=== PATIENT | female | born 2000 | race Caucasian/White ===

== ENCOUNTER 2024-06-29 13:31 | Outpatient (AMB) | payer MEDICAID, SELFPAY ==
[2024-06-29 13:40] VITALS: BP 135/91; PULSE 92; RESP 18; TEMP 36.5; O2SAT 97; BMI 27.7
--- NOTE | 2024-06-29 13:40 | OBCLNT_ITS ---
Vital Signs 06/29/24 13:40 Height 1.61 m Height Method Stated Weight 72.121 kg Weight Measurement Method Standing Scale BMI 27.7 BP 135/91 H Blood Pressure Source Automatic Cuff Blood Pressure Location Right Upper Arm Position Sitting Respiration 18 Pulse 92 Pulse Source Monitor Temp 97.7 F Temp Source Oral Pulse Oximetry (%) 97 Oxygen Delivery Method Room Air Allergies/Home Meds Allergies & Medications Allergies No Known Allergies Allergy (Verified 06/29/24 13:41) Medication Reconciliation ondansetron 8 mg disintegrating tablet 8 mg PO QDAY PRN nausea and vomiting 5 days #10 tabs 06/29/24 [Rx] promethazine 12.5 mg rectal suppository 12.5 mg [place] Q6H PRN nausea and vomiting #12 ea 06/29/24 [Rx] Intake Visit Data Collection New Patient or Established: New Patient (never been to [facility]) Reason for Visit:: INITIAL CARE Seen by Clinical Staff ONLY (RN/MA): No Cargo Agent Required: No Do You Feel Safe at Home: Yes Authorities Contacted: N/A PCP or OBGYN visit in last 3 months: Yes Hx Now: Yes Are you currently on any form of Control: No Last menstrual period: 04/04/24 Pain Present Currently: Yes Pain Location: Abdomen Pain Scale Used: Rivas-Bojorquez/Numerical Pain scale:: 6 Smoking Status Smoking Status: Never smoker Questionnaires Covid-19 Vaccine Questionnaire Has patient been vacinated for Covid-19 Have you been vacinated for Covid-19: No PHQ-9 PHQ-2 Over the last 2 weeks, how often have you been bothered by any of the following problems? 1. Little interest or pleasure in doing things: not at all 2. Feeling down, depressed, or hopeless: not at all Total score: 0 PHQ-9 3. Trouble falling or staying asleep, or sleeping too much: Not at all 4. Feeling tired or having little energy: Not at all 5. Poor appetite or overeating: Not at all 6. Feeling bad about yourself - or that you are a failure or have let yourself or your family down: Not at all 7. Trouble concentrating on things, such as reading the newspaper or watching television: Not at all 8. Moving or speaking so slowly that other people could have noticed? - Or the opposite - being so fidgety or restless that you have been moving around a lot more than usual: not at all 9. Thoughts that you would be better off or of hurting yourself in some way: Not at all Total score: 0 Source: Developed by Drs. Sebastián Gonzáles, Layla Arias, Oh Tomas and colleagues, with an educational sigifredo from [employer]. Depression screen completed yes Social History Living Situation History Lives With: Family Housing: House Tobacco History Smoking Status: Never smoker Second Hand Smoke Exposure: No Alcohol History Alcohol Intake: Never Domestic Abuse History Do You Feel Safe at Home: Yes History of Present Illness HPI Narrative 24-year-old 1 here for new OB appointment. Plan . Last. Was April 04, 2024. Gives EDC January 08, 2025. Patient notes complaints of hyperemesis so far this . Patient reports that she has been to the ED ED 4 times already for nausea and vomiting. Reports she is unable to keep any food down or liquids. She has not been able to eat for the last 3 days. Denies any bleeding or cramping. Patient reports she has a history of marijuana use but is stopped with the . She had her gallstones about 4 years ago. Previous history of headaches but no visual changes or aura. And anemia. No SAB complaints at this time. Patient reports that at menarche her periods were regular but now they have become more regular. And she reports that her and her partner were trying to get . Happy about the but patient reported that she is having a hard time with the nausea and vomiting is uncontrollable to her and she was or would consider terminating . OB Initial Visit OB Flowsheet OB Flowsheet Initial Weight: Not Recorded Date -?-?-?-?-?-?-?-?-?-?-?-?- EGA Weight Edema CTX Effacement BP Fundal ht Pres Dilation Effacement Station Visit Note Alb Glu FHR Mov 06/29/24 -?-?-?-?-?-?-?-?-?-?-?-?- 12w 2d 72.121 kg absent absent 135/91 13 unknown 24-year-old 1 for OB appointment. Last period was April 04, 2024. And this gives due date January 08, 2025. Denies any SAB complaints thus far. Patient reports hyperemesis. She is nauseous all day and has been vomiting nonstop. Unable to eat even small amounts of food. Unable to drink liquids. She has been to the ER now 4 times. Reports that she was treated with an IV and then sent home not on any antiemetics. I spent time with patient today discussing comfort measures for hyperemesis. Such as dry diet. I recommended sea bands to the patient to try. Gave a prescription for Zofran 8 mg sublingual's I gave 30 of those with refills and then I also gave him Phenergan 12.5 suppositories that is every 6. If she is unable to tolerate the p.o. Zofran. Patient is states that she can tolerate gummy so she is taking those. OB panel with NIPT and carrier screens and drug screen today. Scheduled maternal- medicine sono for evaluation of anatomy. Early anatomy scan. Discussed SAB precautions and patient will return in 2 weeks for follow-up 156 absent Menstrual History Menstrual reliability: definite Flow: normal Menstrual regularity: irregular Monthly: Yes Age at menarche: 11 On control pills at conception: No Associated symptoms (LMP): Reports nausea, vomiting, fatigue, breast tenderness and bloating OB History : 1 Infection History & Risk Evaluation History of STDs: none Genetic Screening & History Genetic Screening/Teratology Counseling - Includes patient, baby's father, or anyone in either family with: 1. Patient's age 35 years or older as of estimated date of delivery: No 2. Thalassemia (Lithuanian, South African, Mediterranean, or Background); MCV less than 80: No 3. Neural Tube Defect (Meningomyelocele, Spina Bifida, or Anencephaly): No 4. Congenital Heart Defect: No 5. Down Syndrome: No 6. Steven-Sachs (Ashkenazi Orthodoxy, Cajun, Yoruba [place]): No 7. Carmen Disease (Ashkenazi Orthodoxy): No 8. Familial Dysautonomia (Ashkenazi Orthodoxy): No 9. Sickle Cell Disease or Trait (): No 10. Hemophilia or other blood disorders: No 11. Muscular Dystrophy: No 12. Cystic Fibrosis: No 13. Armando's Chorea: No 14. Mental Retardation/Autism: No 15. Other inherited genetic or chromosomal disorder: No 16. Maternal Metabolic Disorder (EG,TYPE 1 Diabetes, PKU): No 17. Patient or baby's father had a child with defects not listed above: No 18. Recurrent loss or a stillbirth: No 19. Medications (including supplements, vitamins, herbs or otc drugs)/illicit/recreational drugs/alcohol since last menstrual period: No 20. Any other: No Infection History 1. Live with someone with TB or exposed to TB: No 2. Rash or viral illness since last menstrual period: No 3. Hepatitis B,C: No Other (see comments) Source: [employer] Review of Systems Review of Systems Systems Reviewed: All systems reviewed, normal except as documented Constitutional Constitutional: Reports fatigue Gastrointestinal Gastrointestinal: Reports bloating, Reports nausea and Reports vomiting Endocrine Endocrine: Reports fatigue Exam General Limitations: no limitations General Appearance: alert, in no apparent distress, comfortable, cooperative, healthy appearing, well developed and well groomed Head Head exam: atraumatic, normocephalic and normal inspection Resp Respiratory exam: Present normal lung sounds bilaterally Card Cardiovascular exam: Present regular rate, normal rhythm and normal heart sounds Abdominal Abdominal exam: Present soft and normal bowel sounds Psych Psychiatric exam: Present normal affect and normal mood Office Procedures OB Clinic LOC & Office Proc's Nursing/Assessment Patient Status: Initial/New Patient OB Clinic Nursing Assessment: Medication Reconciliation, Update PMH in EMR and Vital Signs OB Clinic Coordination of Care: Complex Care and Chronic Disease 1-5, Consent,records obtained, informed consent, Education Simp Pt/Fam, Results/Orders obtained and Staff clarify orders Special Needs: Heart tones New Patient Charge New Patient Point Assignment: 1119 New Patient Point Charge: CHEMICAL PROCESSING TECHNICIAN Level 4 ([id number]) Assessment & Plan Diagnosis / Problem List (1) Encounter for supervision of normal first , first trimester: Status: Acute Plan Schedule anatomy scan with maternal- medicine. Discussed comfort measures for hyperemesis and severe nausea and vomiting. I gave her prescription for Zofran 8 mg sublingual to use once a day for nausea and vomiting and also Phenergan suppository 12.5 Q6 as needed for nausea. Recommended dry diet. Discussed SAB precautions. OB panel today with NIPT and carrier screening. Return in 2 weeks follow-up Additional Plan Follow Up: 2 Weeks (obc)
== END 2024-06-29 14:38 | disposition home or self-care (01) ==
LOC: HODSOBC 13:31
PROVIDERS: Supervising Provider Advanced Practice Midwife; Visit Provider Advanced Practice Midwife
DX: O09.891 Supervision of other high risk pregnancies, first trimester (principal); Z3A.12 12 weeks gestation of pregnancy; O21.0 Mild hyperemesis gravidarum
CPT/HCPCS: 99204; G0463

== ENCOUNTER 2024-06-29 15:53 | Emergency (ER) | payer MEDICAID, SELFPAY ==
[2024-06-29 16:41] VITALS: BP 119/77; PULSE 89; RESP 20; TEMP 36.9; O2SAT 100
--- NOTE | 2024-06-29 16:52 | EDRME_ITS ---
Rapid Medical Screening Exam E Arrival date/time: 06/29/24 15:53 24-year-old female with no known medical history presents to the emergency room with a chief complaint of nausea vomiting x 1 week. Patient is currently 12 weeks . Patient states she has seen her PERSONAL CARE SERVICE PROVIDER and has been prescribed Zofran but it is not working. I have greeted and performed a focused initial assessment of this patient. A comprehensive ED assessment and evaluation of the patient, analysis of all test results, and completion of the medical decision making process will be conducted by additional ED providers. Chief Complaint: Nausea/Vomiting/Diarrhea Time Seen by Provider: 06/29/24 16:38 Vital signs: Vital Signs Temperature 98.4 F 06/29/24 16:41 Pulse Rate 89 06/29/24 16:41 Respiratory Rate 20 06/29/24 16:41 Blood Pressure 119/77 06/29/24 16:41 Pulse Oximetry (%) 100 06/29/24 16:41 Oxygen Delivery Method Room Air 06/29/24 16:41 Vital signs reviewed by provider: Yes
--- NOTE | 2024-06-29 16:59 | PC.NURSE ---
@165 - PT CALLED FROM ED [facility]; NO ANSWER. @174- PT CALLED FROM [facility] AGAIN; NO ANSWER. @1811- PT CALLED FROM ED [facility] FOR LAST CALL; NO ANSWER. PT ELOPED.
--- NOTE | 2024-06-29 16:59 | PC.NURSE ---
no answer x 1 at 1656. checked outside and lobby.
--- NOTE | 2024-06-29 17:41 | PC.NURSE ---
no answer x 2 at 1740. checked outside and lobby
== END 2024-06-29 18:14 | disposition left against medical advice (07) ==
PROVIDERS: Emergency Provider Emergency Medicine
DX: O21.9 Vomiting of pregnancy, unspecified (principal); Z3A.12 12 weeks gestation of pregnancy; Z53.29 Procedure and treatment not carried out because of patient's decision for other reasons
CPT/HCPCS: 80053; 85025; 99281

== ENCOUNTER 2024-07-13 11:49 | Outpatient (AMB) | payer MEDICAID, SELFPAY ==
[2024-07-13 11:54] VITALS: BP 131/78; PULSE 102; RESP 18; TEMP 36; O2SAT 98; BMI 29.1
--- NOTE | 2024-07-13 11:54 | AMB.OBVISIT ---
Vital Signs 07/13/24 11:54 Height 1.61 m Height Method Stated Weight 75.466 kg Weight Measurement Method Standing Scale BMI 29.1 BP 131/78 H Blood Pressure Source Automatic Cuff Blood Pressure Location Left Upper Arm Position Sitting Respiration 18 Pulse 102 H Pulse Source Monitor Temp 96.8 F Temp Source Oral Pulse Oximetry (%) 98 Oxygen Delivery Method Room Air Allergies/Home Meds Allergies & Medications Allergies latex Allergy (Verified 07/13/24 11:55) Medication Reconciliation ondansetron 8 mg disintegrating tablet 8 mg PO QDAY PRN nausea and vomiting 5 days #10 tabs 06/29/24 [Rx Confirmed 07/13/24] promethazine 12.5 mg rectal suppository 12.5 mg [place] Q6H PRN nausea and vomiting #12 ea 06/29/24 [Rx Confirmed 07/13/24] Intake Visit Data Collection New Patient or Established: Established Patient (seen at [facility] within 3 years) Reason for Visit:: C Seen by Clinical Staff ONLY (RN/MA): No Bioinformatics Research Technician Required: No Do You Feel Safe at Home: Yes Authorities Contacted: N/A PCP or OBGYN visit in last 3 months: Yes Date of Last PCP or OBGYN visit: 06/29/24 Hx Now: Yes Are you currently on any form of Control: No Pain Present Currently: No Pain Scale Used: Rivas-Bojorquez/Numerical Pain scale:: 0 Smoking Status Smoking Status: Never smoker Questionnaires Covid-19 Vaccine Questionnaire Has patient been vacinated for Covid-19 Have you been vacinated for Covid-19: Yes PHQ-9 PHQ-2 Over the last 2 weeks, how often have you been bothered by any of the following problems? 1. Little interest or pleasure in doing things: not at all 2. Feeling down, depressed, or hopeless: not at all Total score: 0 PHQ-9 3. Trouble falling or staying asleep, or sleeping too much: Not at all 4. Feeling tired or having little energy: Not at all 5. Poor appetite or overeating: Not at all 6. Feeling bad about yourself - or that you are a failure or have let yourself or your family down: Not at all 7. Trouble concentrating on things, such as reading the newspaper or watching television: Not at all 8. Moving or speaking so slowly that other people could have noticed? - Or the opposite - being so fidgety or restless that you have been moving around a lot more than usual: not at all 9. Thoughts that you would be better off or of hurting yourself in some way: Not at all Total score: 0 If you checked off any problems, how difficult have these problems made it for you to do your work, take care of things at home, or get along with other people?: not difficult at all Source: Developed by Drs. Sebastián Gonzáles, Layla Arias, Oh Tomas and colleagues, with an educational sigifredo from [employer]. Depression screen completed yes Social History Living Situation History Lives With: Family Housing: House Tobacco History Smoking Status: Never smoker Second Hand Smoke Exposure: No Alcohol History Alcohol Intake: Never Domestic Abuse History Do You Feel Safe at Home: Yes Care OB Visit Log OB Flowsheet Initial Weight: Not Recorded Date <del>?</del> EGA Weight BP Alb Glu CTX Pres Fundal ht FHR Mov Dilation Station Effacement Hx Notes Visit Note 06/29/24 <del>?</del> 12w 2d 72.121 kg 135/91 absent unknown 13 156 absent 24-year-old 1 for OB appointment. Last period was April 04, 2024. And this gives due date January 08, 2025. Denies any SAB complaints thus far. Patient reports hyperemesis. She is nauseous all day and has been vomiting nonstop. Unable to eat even small amounts of food. Unable to drink liquids. She has been to the ER now 4 times. Reports that she was treated with an IV and then sent home not on any antiemetics. I spent time with patient today discussing comfort measures for hyperemesis. Such as dry diet. I recommended sea bands to the patient to try. Gave a prescription for Zofran 8 mg sublingual's I gave 30 of those with refills and then I also gave him Phenergan 12.5 suppositories that is every 6. If she is unable to tolerate the p.o. Zofran. Patient is states that she can tolerate gummy so she is taking those. OB panel with NIPT and carrier screens and drug screen today. Scheduled maternal- medicine sono for evaluation of anatomy. Early anatomy scan. Discussed SAB precautions and patient will return in 2 weeks for follow-up 07/13/24 <del>?</del> 14w 2d 75.466 kg 131/78 absent unknown 14 156 absent patient will get NIPT and ob panel today. reports nausea improving with zofran, MFM appointment pending. denies sab complaints, AFP NV advised to get labs. mfm appointment pending. continue zofran as needed for nausea, discuss dry diet. sab precaution, AFP NV JAMARCUS Calculator Estimated Delivery Date Method Current WG Current Estimate 01/09/25 LMP (Certain) 14w 2d Notes Visit Date: 06/29/24 Last Updated by: Krystal Mcgee CNM 24 yo . LMP 04/04/24. EDC 01/08/25. Hyperemesis Office Procedures OB Clinic LOC & Office Proc's Nursing/Assessment Patient Status: Established Patient OB Clinic Nursing Assessment: Medication Reconciliation, Update PMH in EMR and Vital Signs OB Clinic Coordination of Care: Consent,records obtained, informed consent, Education Simp Pt/Fam and Lab and Imaging orders Special Needs: Heart tones Established Patient Charge Established Patient Point Assignment: 95 Established Patient Point Charge: EP Level 3 (80-115) Assessment & Plan Diagnosis / Problem List (1) Encounter for supervision of other normal , second trimester: Status: Acute Plan AFP NV, MFM appointment pending, continue zofran as needed for nausea and comfort measure. sab precaution. get ob labs drawn. rtc 4 week obc Additional Plan Follow Up: 4 Weeks (obc)
== END 2024-07-13 12:39 | disposition home or self-care (01) ==
LOC: HODSOBC 11:49
PROVIDERS: Supervising Provider Advanced Practice Midwife; Visit Provider Advanced Practice Midwife
DX: Z34.02 Encounter for supervision of normal first pregnancy, second trimester (principal); Z3A.14 14 weeks gestation of pregnancy
CPT/HCPCS: 99213; G0463

== ENCOUNTER 2024-08-17 08:53 | Outpatient (AMB) | payer MEDICAID, SELFPAY ==
[2024-08-17 09:08] VITALS: BP 115/79; PULSE 104; RESP 17; TEMP 36.5; O2SAT 97; BMI 28.0
--- NOTE | 2024-08-17 09:08 | OBCLNT_ITS ---
Vital Signs 08/17/24 09:08 Height 1.61 m Height Method Stated Weight 72.802 kg Weight Measurement Method Standing Scale BMI 28.0 BP 115/79 Blood Pressure Source Automatic Cuff Blood Pressure Location Right Upper Arm Position Sitting Respiration 17 Pulse 104 H Pulse Source Monitor Temp 97.7 F Temp Source Temporal Artery Scan Pulse Oximetry (%) 97 Oxygen Delivery Method Room Air Allergies/Home Meds Allergies & Medications Allergies latex Allergy (Verified 08/17/24 09:08) Medication Reconciliation ondansetron 8 mg disintegrating tablet 8 mg PO QDAY PRN nausea and vomiting 5 days #10 tabs 06/29/24 [Rx Confirmed 07/13/24] Intake Visit Data Collection New Patient or Established: Established Patient (seen at [facility] within 3 years) Reason for Visit:: OBC Seen by Clinical Staff ONLY (RN/MA): No Museum Preparator Required: No Do You Feel Safe at Home: Yes Authorities Contacted: N/A PCP or OBGYN visit in last 3 months: Yes Date of Last PCP or OBGYN visit: 07/13/24 Hx Now: Yes Are you currently on any form of Control: No Pain Present Currently: No Pain Scale Used: Rivas-Bojorquez/Numerical Smoking Status Smoking Status: Never smoker Questionnaires Covid-19 Vaccine Questionnaire Has patient been vacinated for Covid-19 Have you been vacinated for Covid-19: No PHQ-9 PHQ-2 Over the last 2 weeks, how often have you been bothered by any of the following problems? 1. Little interest or pleasure in doing things: not at all 2. Feeling down, depressed, or hopeless: not at all Total score: 0 PHQ-9 3. Trouble falling or staying asleep, or sleeping too much: Not at all 4. Feeling tired or having little energy: Not at all 5. Poor appetite or overeating: Not at all 6. Feeling bad about yourself - or that you are a failure or have let yourself or your family down: Not at all 7. Trouble concentrating on things, such as reading the newspaper or watching television: Not at all 8. Moving or speaking so slowly that other people could have noticed? - Or the opposite - being so fidgety or restless that you have been moving around a lot more than usual: not at all 9. Thoughts that you would be better off or of hurting yourself in some way: Not at all Total score: 0 If you checked off any problems, how difficult have these problems made it for you to do your work, take care of things at home, or get along with other people?: not difficult at all Source: Developed by Drs. Sebastián Gonzáles, Layla Arias, Oh Tomas and colleagues, with an educational sigifredo from [employer]. Depression screen completed yes Social History Living Situation History Marital Status: Lives With: Family Housing: House Tobacco History Smoking Status: Never smoker Second Hand Smoke Exposure: No Alcohol History Alcohol Intake: Never Domestic Abuse History Do You Feel Safe at Home: Yes Care OB Visit Log OB Flowsheet Initial Weight: Not Recorded Date -?-?-?-?-?-?-?-?-?-?-?-?- EGA Weight BP Alb Glu CTX Pres Fundal ht FHR Mov Dilation Station Effacement Hx Notes Visit Note 06/29/24 -?-?-?-?-?-?-?-?-?-?-?-?- 12w 2d 72.121 kg 135/91 absent unknown 13 156 absent 24-year-old 1 for OB appointment. Last period was April 04, 2024. And this gives due date January 08, 2025. Denies any SAB complaints thus far. Patient reports hyperemesis. She is nauseous all day and has been vomiting nonstop. Unable to eat even small amounts of food. Unable to drink liquids. She has been to the ER now 4 times. Reports that she was treated with an IV and then sent home not on any antiemetics. I spent time with patient today discussing comfort measures for hyperemesis. Such as dry diet. I recommended sea bands to the patient to try. Gave a prescription for Zofran 8 mg sublingual's I gave 30 of those with refills and then I also gave him Phenergan 12.5 suppositories that is every 6. If she is unable to tolerate the p.o. Zofran. Patient is states that she can tolerate gummy so she is taking those. OB panel with NIPT and carrier screens and drug screen today. Scheduled maternal- medicine sono for evaluation of anatomy. Early anatomy scan. Discussed SAB precautions and patient will return in 2 weeks for follow-up 07/13/24 -?-?-?-?-?-?-?-?-?-?-?-?- 14w 2d 75.466 kg 131/78 absent unknown 14 156 absent patient will get NIPT and ob panel today. reports nausea improving with zofran, MFM appointment pending. denies sab complaints, AFP NV advised to get labs. mfm appointment pending. continue zofran as needed for nausea, discuss dry diet. sab precaution, AFP NV 08/17/24 -?-?-?-?-?-?-?-?-?-?-?-?- 19w 2d 72.802 kg 115/79 absent unknown 19 154 absent light FM, no sab complaints. patient not sched for work x 3 week AFP, comfort measure for increased saliva. sab precaution. patient will call [facility] for sono. rtc 4 week JAMARCUS Calculator Estimated Delivery Date Method Current WG Current Estimate 01/09/25 LMP (Certain) 19w 2d Notes Visit Date: 08/17/24 Last Updated by: Krystal Mcgee CNM 08/16: O+,abs-, rpr;;nr, rub:NI, hbsag-, hiv-, gc/ct-, NIPT/neg, CF/SMA- Visit Date: 06/29/24 Last Updated by: Krystal Mcgee CNM 24 yo . LMP 04/04/24. EDC 01/08/25. Hyperemesis Office Procedures OB Clinic LOC & Office Proc's Nursing/Assessment Patient Status: Established Patient OB Clinic Nursing Assessment: Medication Reconciliation OB Clinic Coordination of Care: Complex Care and Chronic Disease 1-5, Consent,records obtained, informed consent, Education Simp Pt/Fam and Staff clarify orders Special Needs: Heart tones Established Patient Charge Established Patient Point Assignment: 90 Established Patient Point Charge: EP Level 3 (80-115) Assessment & Plan Diagnosis / Problem List (1) Encounter for supervision of other normal , second trimester: Status: Acute Plan: AFP, comfort measure for increased saliva, r/s MFNM appointment, sab precaution. rtc 4 week. OBC Additional Plan Follow Up: 4 Weeks (OBC)
== END 2024-08-17 09:38 | disposition home or self-care (01) ==
LOC: HODSOBC 08:53
PROVIDERS: PCP Advanced Practice Midwife; Referring Provider Advanced Practice Midwife; Supervising Provider Advanced Practice Midwife; Visit Provider Advanced Practice Midwife
DX: Z34.02 Encounter for supervision of normal first pregnancy, second trimester (principal); Z3A.19 19 weeks gestation of pregnancy
CPT/HCPCS: 99213; G0463

== ENCOUNTER 2024-09-14 10:23 | Outpatient (AMB) | payer MEDICAID, SELFPAY ==
[2024-09-14 10:45] VITALS: BP 115/75; PULSE 86; RESP 17; TEMP 36.8; O2SAT 98; BMI 29.5
--- NOTE | 2024-09-14 10:45 | OBCLNT_ITS ---
Vital Signs 09/14/24 10:45 Height 1.61 m Height Method Stated Weight 76.657 kg Weight Measurement Method Standing Scale BMI 29.5 BP 115/75 Blood Pressure Source Automatic Cuff Blood Pressure Location Right Upper Arm Position Sitting Respiration 17 Pulse 86 Pulse Source Monitor Temp 98.2 F Temp Source Temporal Artery Scan Pulse Oximetry (%) 98 Oxygen Delivery Method Room Air Allergies/Home Meds Allergies & Medications Allergies latex Allergy (Verified 09/14/24 10:46) Medication Reconciliation ondansetron 8 mg disintegrating tablet 8 mg PO QDAY PRN nausea and vomiting 5 days #10 tabs 06/29/24 [Rx Confirmed 09/14/24] Intake Visit Data Collection New Patient or Established: Established Patient (seen at [facility] within 3 years) Reason for Visit:: OBC 23W2D Seen by Clinical Staff ONLY (RN/MA): No Architectural Designer Required: No Do You Feel Safe at Home: Yes Authorities Contacted: N/A PCP or OBGYN visit in last 3 months: Yes Date of Last PCP or OBGYN visit: 08/17/24 Hx Now: Yes Are you currently on any form of Control: No Pain Present Currently: No Pain Scale Used: Rivas-Bojorquez/Numerical Pain scale:: 0 Smoking Status Smoking Status: Never smoker Questionnaires Covid-19 Vaccine Questionnaire Has patient been vacinated for Covid-19 Have you been vacinated for Covid-19: No PHQ-9 PHQ-2 Over the last 2 weeks, how often have you been bothered by any of the following problems? 1. Little interest or pleasure in doing things: not at all 2. Feeling down, depressed, or hopeless: not at all Total score: 0 PHQ-9 3. Trouble falling or staying asleep, or sleeping too much: Not at all 4. Feeling tired or having little energy: Not at all 5. Poor appetite or overeating: Not at all 6. Feeling bad about yourself - or that you are a failure or have let yourself or your family down: Not at all 7. Trouble concentrating on things, such as reading the newspaper or watching television: Not at all 8. Moving or speaking so slowly that other people could have noticed? - Or the opposite - being so fidgety or restless that you have been moving around a lot more than usual: not at all 9. Thoughts that you would be better off or of hurting yourself in some way: Not at all Total score: 0 If you checked off any problems, how difficult have these problems made it for you to do your work, take care of things at home, or get along with other people?: not difficult at all Source: Developed by Drs. Sebastián Gonzáles, Layla Arias, Oh Tomas and colleagues, with an educational sigifredo from [employer]. Depression screen completed yes Social History Living Situation History Marital Status: Life Partner Lives With: Family Housing: House Tobacco History Smoking Status: Never smoker Second Hand Smoke Exposure: No Alcohol History Alcohol Intake: Never Domestic Abuse History Do You Feel Safe at Home: Yes Care OB Visit Log OB Flowsheet Initial Weight: Not Recorded Date -?-?-?-?-?-?-?-?-?-?-?-?- EGA Weight BP Alb Glu CTX Pres Fundal ht FHR Mov Dilation Station Effacement Hx Notes Visit Note 06/29/24 -?-?-?-?-?-?-?-?-?-?-?-?- 12w 2d 72.121 kg 135/91 absent unknown 13 156 absent 24-year-old 1 for OB appointment. Last period was April 04, 2024. And this gives due date January 08, 2025. Denies any SAB complaints thus far. Patient reports hyperemesis. She is nauseous all day and has been vomiting nonstop. Unable to eat even small amounts of food. Unable to drink liquids. She has been to the ER now 4 times. Reports that she was treated with an IV and then sent home not on any antiemetics. I spent time with patient today discussing comfort measures for hyperemesis. Such as dry diet. I recommended sea bands to the patient to try. Gave a prescription for Zofran 8 mg sublingual's I gave 30 of those with refills and then I also gave him Phenergan 12.5 suppositories that is every 6. If she is unable to tolerate the p.o. Zofran. Patient is states that she can tolerate gummy so she is taking those. OB panel with NIPT and carrier screens and drug screen today. Scheduled maternal- medicine sono for evaluation of anatomy. Early anatomy scan. Discussed SAB precautions and patient will return in 2 weeks for follow-up 07/13/24 -?-?-?-?-?-?-?-?-?-?-?-?- 14w 2d 75.466 kg 131/78 absent unknown 14 156 absent patient will get NIPT and ob panel today. reports nausea improving with zofran, MFM appointment pending. denies sab complaints, AFP NV advised to get labs. mfm appointment pending. continue zofran as needed for nausea, discuss dry diet. sab precaution, AFP NV 08/17/24 -?-?-?-?-?-?-?-?-?-?-?-?- 19w 2d 72.802 kg 115/79 absent unknown 19 154 absent light FM, no sab complaints. patient not sched for work x 3 week AFP, comfort measure for increased saliva. sab precaution. patient will call [facility] for sono. rtc 4 week 09/14/24 -?-?-?-?-?-?-?-?-?-?-?-?- 23w 2d 76.657 kg 115/75 absent unknown 23 145 absent Increased saliva. fetus active, denies leaking,bleeding or UC, nausea improved. anatomy scan pending 3rd ti labs toda y. f/u on MFM appointment, discuss ptl precaution,hydrTE. COMFORT MEASURE. rtc 4 week JAMARCUS Calculator Estimated Delivery Date Method Current WG Current Estimate 01/09/25 LMP (Certain) 23w 2d Notes Visit Date: 09/14/24 Last Updated by: Krystal Mcgee CNM 24 yo . LMP 04/04/24. EDC 01/09/25 Visit Date: 08/17/24 Last Updated by: Krystal Mcgee CNM 08/16: O+,abs-, rpr;;nr, rub:NI, hbsag-, hiv-, gc/ct-, NIPT/neg, CF/SMA- Visit Date: 06/29/24 Last Updated by: Krystal Mcgee CNM 24 yo . LMP 04/04/24. EDC 01/08/25. Hyperemesis Office Procedures OB Clinic LOC & Office Proc's Nursing/Assessment Patient Status: Established Patient OB Clinic Nursing Assessment: Medication Reconciliation, Update PMH in EMR and Vital Signs OB Clinic Coordination of Care: Complex Care and Chronic Disease 1-5, Consent,records obtained, informed consent, Education Simp Pt/Fam and Staff clarify orders Special Needs: Heart tones Established Patient Charge Established Patient Point Assignment: 115 Established Patient Point Charge: EP Level 3 (80-115) Assessment & Plan Diagnosis / Problem List (1) Encounter for supervision of other normal , second trimester: Status: Acute Plan Increase fluids and hydrate. Discussed labor precautions. Third trimester labs. Will follow-up pending maternal- medicine anatomy scan. Return in 3 weeks OB check Additional Plan Follow Up: 4 Weeks (obc)
== END 2024-09-14 11:14 | disposition home or self-care (01) ==
LOC: HODSOBC 10:23
PROVIDERS: PCP Advanced Practice Midwife; Referring Provider Advanced Practice Midwife; Supervising Provider Advanced Practice Midwife; Visit Provider Advanced Practice Midwife
DX: Z34.02 Encounter for supervision of normal first pregnancy, second trimester (principal); Z3A.23 23 weeks gestation of pregnancy
CPT/HCPCS: 99213; G0463

== ENCOUNTER 2024-10-19 13:05 | Outpatient (AMB) | payer MEDICAID, SELFPAY ==
--- NOTE | 2024-10-19 13:12 | OBCLNT_ITS ---
Vital Signs 10/19/24 13:13 Height 1.61 m Height Method Stated Weight 75.523 kg Weight Measurement Method Standing Scale BMI 29.1 BP 119/81 Blood Pressure Source Automatic Cuff Blood Pressure Location Left Upper Arm Position Sitting Respiration 18 Pulse 95 Pulse Source Monitor Temp 97.7 F Temp Source Oral Pulse Oximetry (%) 99 Oxygen Delivery Method Room Air Allergies/Home Meds Allergies & Medications Allergies latex Allergy (Verified 10/19/24 13:22) Medication Reconciliation ondansetron 8 mg disintegrating tablet 8 mg PO QDAY PRN nausea and vomiting 5 days #10 tabs 06/29/24 [Rx Confirmed 10/19/24] clotrimazole 1 % vaginal cream 1 appful vaginal QHS #1 tube 10/19/24 [Rx] clotrimazole 2 % vaginal cream (Gyne-Lotrimin) 1 appful vaginal QHS 3 days #1 tube 10/19/24 [Rx] metronidazole 500 mg tablet 500 mg PO BID 7 days #14 tabs 10/19/24 [Rx] Intake Visit Data Collection New Patient or Established: Established Patient (seen at [facility] within 3 years) Reason for Visit:: CARE Seen by Clinical Staff ONLY (RN/MA): No Third Officer Required: No Do You Feel Safe at Home: Yes Authorities Contacted: N/A PCP or OBGYN visit in last 3 months: Yes Hx Now: Yes Are you currently on any form of Control: No Pain Present Currently: No Pain Scale Used: Rivas-Bojorquez/Numerical Pain scale:: 0 Smoking Status Smoking Status: Never smoker Questionnaires Covid-19 Vaccine Questionnaire Has patient been vacinated for Covid-19 Have you been vacinated for Covid-19: Yes PHQ-9 PHQ-2 Over the last 2 weeks, how often have you been bothered by any of the following problems? 1. Little interest or pleasure in doing things: not at all 2. Feeling down, depressed, or hopeless: not at all Total score: 0 PHQ-9 3. Trouble falling or staying asleep, or sleeping too much: Not at all 4. Feeling tired or having little energy: Not at all 5. Poor appetite or overeating: Not at all 6. Feeling bad about yourself - or that you are a failure or have let yourself or your family down: Not at all 7. Trouble concentrating on things, such as reading the newspaper or watching television: Not at all 8. Moving or speaking so slowly that other people could have noticed? - Or the opposite - being so fidgety or restless that you have been moving around a lot more than usual: not at all 9. Thoughts that you would be better off or of hurting yourself in some way: Not at all Total score: 0 Source: Developed by Drs. Sebastián Gonzáles, Layla Arias, Oh Tomas and colleagues, with an educational sigifredo from [employer]. Depression screen completed yes Social History Living Situation History Lives With: Family Housing: House Tobacco History Smoking Status: Never smoker Second Hand Smoke Exposure: No Alcohol History Alcohol Intake: Never Domestic Abuse History Do You Feel Safe at Home: Yes Care OB Visit Log OB Flowsheet Initial Weight: Not Recorded Date -?-?-?-?-?-?-?-?-?-?-?-?- EGA Weight BP Alb Glu CTX Pres Fundal ht FHR Mov Dilation Station Effacement Hx Notes Visit Note 06/29/24 -?-?-?-?-?-?-?-?-?-?-?-?- 12w 2d 72.121 kg 135/91 absent unknown 13 156 absent 24-year-old 1 for OB appointment. Last period was April 04, 2024. And this gives due date January 08, 2025. Denies any SAB complaints thus far. Patient reports hyperemesis. She is nauseous all day and has been vomiting nonstop. Unable to eat even small amounts of food. Unable to drink liquids. She has been to the ER now 4 times. Reports that she was treated with an IV and then sent home not on any antiemetics. I spent time with patient today discussing comfort measures for hyperemesis. Such as dry diet. I recommended sea bands to the patient to try. Gave a prescription for Zofran 8 mg sublingual's I gave 30 of those with refills and then I also gave him Phenergan 12.5 suppositories that is every 6. If she is unable to tolerate the p.o. Zofran. Patient is states that she can tolerate gummy so she is taking those. OB panel with NIPT and carrier screens and drug screen today. Scheduled maternal- medicine sono for evaluation of anatomy. Early anatomy scan. Discussed SAB precautions and patient will return in 2 weeks for follow-up 07/13/24 -?-?-?-?-?-?-?-?-?-?-?-?- 14w 2d 75.466 kg 131/78 absent unknown 14 156 absent patient will get NIPT and ob panel today. reports nausea improving with zofran, MFM appointment pending. denies sab complaints, AFP NV advised to get labs. mfm appointment pending. continue zofran as needed for nausea, discuss dry diet. sab precaution, AFP NV 08/17/24 -?-?-?-?-?-?-?-?-?-?-?-?- 19w 2d 72.802 kg 115/79 absent unknown 19 154 absent light FM, no sab complaints. patient not sched for work x 3 week AFP, comfort measure for increased saliva. sab precaution. patient will call [facility] for sono. rtc 4 week 09/14/24 -?-?-?-?-?-?-?-?-?-?-?-?- 23w 2d 76.657 kg 115/75 absent unknown 23 145 absent Increased saliva. fetus active, denies leaking,bleeding or UC, nausea improved. anatomy scan pending 3rd ti labs toda y. f/u on MFM appointment, discuss ptl precaution,hydrTE. COMFORT MEASURE. rtc 4 week 10/19/24 -?-?-?-?-?-?-?-?-?-?-?-?- 28w 2d 75.523 kg 119/81 absent unknown 28 145 active Able to feel movement better now. Denies any signs symptoms of labor. Patient had an ultrasound at [facility] today. Continued itching and burning. And new swab results was positive for BV and positive for yeast BOTTLING ATTENDANT Lotrimin 1% x 7 days ordered for patient. Flagyl 500 p.o. twice daily x 7 also ordered. Advised patient to get her third trimester labs. Discussed labor precautions. Increase fluids. And return in 3 weeks for OB check JAMARCUS Calculator Estimated Delivery Date Method Current WG Current Estimate 01/09/25 LMP (Certain) 28w 2d Notes Visit Date: 09/14/24 Last Updated by: Krystal Mcgee CNM 24 yo . LMP 04/04/24. EDC 01/09/25 Visit Date: 08/17/24 Last Updated by: Krystal Mcgee CNM 08/16: O+,abs-, rpr;;nr, rub:NI, hbsag-, hiv-, gc/ct-, NIPT/neg, CF/SMA- Visit Date: 06/29/24 Last Updated by: Krystal Mcgee CNM 24 yo . LMP 04/04/24. EDC 01/08/25. Hyperemesis Office Procedures OB Clinic LOC & Office Proc's Nursing/Assessment Patient Status: Established Patient OB Clinic Nursing Assessment: Medication Reconciliation, Update PMH in EMR and Vital Signs OB Clinic Coordination of Care: Complex Care and Chronic Disease 1-5, Consent,records obtained, informed consent, Education Simp Pt/Fam, 1 Ins Authorization, Lab and Imaging orders, Results/Orders obtained and Staff clarify orders Special Needs: Heart tones Established Patient Charge Established Patient Point Assignment: 150 Established Patient Point Charge: EP Level 4 (120-155) Assessment & Plan Diagnosis / Problem List (1) Encounter for supervision of high risk in third trimester, antepartum: Status: Acute Plan I ordered clotrimazole x 7. Flagyl 500 p.o. twice daily x 7. Discussed NuSwab results. Advised patient to get her third trimester labs done. Call for results of ultrasound from [facility] that was done today. Patient will call [facility] for her [facility] appointment. Return in 3 weeks OB check Additional Plan Follow Up: 3 Weeks (obc)
[2024-10-19 13:13] VITALS: BP 119/81; PULSE 95; RESP 18; TEMP 36.5; O2SAT 99; BMI 29.1
== END 2024-10-19 13:41 | disposition home or self-care (01) ==
LOC: HODSOBC 13:05
PROVIDERS: Supervising Provider Advanced Practice Midwife; Visit Provider Advanced Practice Midwife
DX: O09.893 Supervision of other high risk pregnancies, third trimester (principal); O98.813 Other maternal infectious and parasitic diseases complicating pregnancy, third trimester; B37.49 Other urogenital candidiasis; O23.593 Infection of other part of genital tract in pregnancy, third trimester; N76.0 Acute vaginitis; B96.89 Other specified bacterial agents as the cause of diseases classified elsewhere; Z3A.28 28 weeks gestation of pregnancy; Z91.040 Latex allergy status
CPT/HCPCS: 99214; G0463

== ENCOUNTER 2024-11-09 10:06 | Outpatient (AMB) | payer MEDICAID, SELFPAY ==
[2024-11-09 10:16] VITALS: BP 126/83; PULSE 90; RESP 18; TEMP 36.8; O2SAT 96; BMI 30.6
--- NOTE | 2024-11-09 10:16 | OBCLNT_ITS ---
Vital Signs 11/09/24 10:16 Height 1.61 m Height Method Stated Weight 79.379 kg Weight Measurement Method Standing Scale BMI 30.6 BP 126/83 Blood Pressure Source Automatic Cuff Blood Pressure Location Left Upper Arm Position Sitting Respiration 18 Pulse 90 Pulse Source Monitor Temp 98.2 F Temp Source Oral Pulse Oximetry (%) 96 Oxygen Delivery Method Room Air Allergies/Home Meds Allergies & Medications Allergies latex Allergy (Verified 11/09/24 10:17) Medication Reconciliation ondansetron 8 mg disintegrating tablet 8 mg PO QDAY PRN nausea and vomiting 5 days #10 tabs 06/29/24 [Rx Confirmed 11/09/24] clotrimazole 1 % vaginal cream 1 appful vaginal QHS #1 tube 11/09/24 [Rx] metronidazole 1 % topical gel (Metrogel) 1 applic topical QHS vaginitis #60 grams 11/09/24 [Rx] Intake Visit Data Collection New Patient or Established: Established Patient (seen at [facility] within 3 years) Reason for Visit:: CARE Seen by Clinical Staff ONLY (RN/MA): No Burlap Bag Sewer Required: No Do You Feel Safe at Home: Yes Authorities Contacted: N/A PCP or OBGYN visit in last 3 months: Yes Hx Now: Yes Are you currently on any form of Control: No Pain Present Currently: No Pain Scale Used: Rivas-Bojorquez/Numerical Pain scale:: 0 Smoking Status Smoking Status: Never smoker Questionnaires Covid-19 Vaccine Questionnaire Has patient been vacinated for Covid-19 Have you been vacinated for Covid-19: Yes PHQ-9 PHQ-2 Over the last 2 weeks, how often have you been bothered by any of the following problems? 1. Little interest or pleasure in doing things: not at all 2. Feeling down, depressed, or hopeless: not at all Total score: 0 PHQ-9 3. Trouble falling or staying asleep, or sleeping too much: Not at all 4. Feeling tired or having little energy: Not at all 5. Poor appetite or overeating: Not at all 6. Feeling bad about yourself - or that you are a failure or have let yourself or your family down: Not at all 7. Trouble concentrating on things, such as reading the newspaper or watching television: Not at all 8. Moving or speaking so slowly that other people could have noticed? - Or the opposite - being so fidgety or restless that you have been moving around a lot more than usual: not at all 9. Thoughts that you would be better off or of hurting yourself in some way: Not at all Total score: 0 Source: Developed by Drs. Sebastián Gonzáles, Layla Arias, Oh Tomas and colleagues, with an educational sigifredo from [employer]. Depression screen completed yes Social History Living Situation History Lives With: Family Housing: House Tobacco History Smoking Status: Never smoker Second Hand Smoke Exposure: No Alcohol History Alcohol Intake: Never Domestic Abuse History Do You Feel Safe at Home: Yes Care OB Visit Log OB Flowsheet Initial Weight: Not Recorded Date -?-?-?-?-?-?-?-?-?-?-?-?- EGA Weight BP Alb Glu CTX Pres Fundal ht FHR Mov Dilation Station Effacement Hx Notes Visit Note 06/29/24 -?-?-?-?-?-?-?-?-?-?-?-?- 12w 2d 72.121 kg 135/91 absent unknown 13 156 absent 24-year-old 1 for OB appointment. Last period was April 04, 2024. And this gives due date January 08, 2025. Denies any SAB complaints thus far. Patient reports hy peremesis. She is nauseous all day and has been vomiting nonstop. Unable to eat even small amounts of food. Unable to drink liquids. She has been to the ER now 4 times. Reports that she was treated with an IV and then sent home not on any antiemetics. I spent time with patient today discussing comfort measures for hyperemesis. Such as dry diet. I recommended sea bands to the patient to try. Gave a prescription for Zofran 8 mg sublingual's I gave 30 of those with refills and then I also gave him Phenergan 12.5 suppositories that is every 6. If she is unable to tolerate the p.o. Zofran. Patient is states that she can tolerate gummy so she is taking those. OB panel with NIPT and carrier screens and drug screen today. Scheduled maternal- medicine sono for evaluation of anatomy. Early anatomy scan. Discussed SAB precautions and patient will return in 2 weeks for follow-up 07/13/24 -?-?-?-?-?-?-?-?-?-?-?-?- 14w 2d 75.466 kg 131/78 absent unknown 14 156 absent patient will get NIPT and ob panel today. reports nausea improving with zofran, MFM appointment pending. denies sab complaints, AFP NV advised to get labs. mfm appointment pending. continue zofran as needed for nausea, discuss dry diet. sab precaution, AFP NV 08/17/24 -?-?-?-?-?-?-?-?-?-?-?-?- 19w 2d 72.802 kg 115/79 absent unknown 19 154 absent light FM, no sab complaints. patient not sched for work x 3 week AFP, comfort measure for increased saliva. sab precaution. patient will call [facility] for sono. rtc 4 week 09/14/24 -?-?-?-?-?-?-?-?-?-?-?-?- 23w 2d 76.657 kg 115/75 absent unknown 23 145 absent Increased saliva. fetus active, denies leaking,bleeding or UC, nausea improved. anatomy scan pending 3rd ti labs toda y. f/u on MFM appointment, discuss ptl precaution,hydrTE. COMFORT MEASURE. rtc 4 week 10/19/24 -?-?-?-?-?-?-?-?-?-?-?-?- 28w 2d 75.523 kg 119/81 absent unknown 28 145 active Able to feel movement better now. Denies any signs symptoms of labor. Patient had an ultrasound at [facility] today. Continued itching and burning. And new swab results was positive for BV and positive for yeast AREA LOSS PREVENTION MANAGER Lotrimin 1% x 7 days ordered for patient. Flagyl 500 p.o. twice daily x 7 also ordered. Advised patient to get her third trimester labs. Discussed labor precautions. Increase fluids. And return in 3 weeks for OB check 11/09/24 -?-?-?-?-?-?-?-?-?-?-?-?- 31w 2d 79.379 kg 126/83 absent unknown 31 145 active Reports movement. Denies leaking or bleeding. Patient had questions about MFM referral. And she still has vaginitis complaints would like a refill on her Follow-up on maternal- medicine referral. Refill AREA LOSS PREVENTION MANAGER Lotrimin 1%. And give MetroGel twice daily for 7 days. Kick count twice weekly. Return in 2 weeks OB JAMARCUS Calculator Estimated Delivery Date Method Current WG Current Estimate 01/09/25 LMP (Certain) 31w 2d Other Estimates 01/06/25 Ultrasound #1 31w 5d 01/09/25 Manual 31w 2d final JAMARCUS: 12/13 11/05. EFW: 32.3% Notes Visit Date: 11/09/24 Last Updated by: Krystal Mcgee CNM 3rd tri labs. wnl Visit Date: 09/14/24 Last Updated by: Krystal Mcgee CNM 24 yo . LMP 04/04/24. EDC 01/09/25 Visit Date: 08/17/24 Last Updated by: Krystal Mcgee CNM 08/16: O+,abs-, rpr;;nr, rub:NI, hbsag-, hiv-, gc/ct-, NIPT/neg, CF/SMA- Visit Date: 06/29/24 Last Updated by: Krystal Mcgee CNM 24 yo . LMP 04/04/24. EDC 01/08/25. Hyperemesis Office Procedures OBC Clinic LOC & Office Proc's Nursing/Assessment Patient Status: Established Patient OB Clinic Nursing Assessment: Medication Reconciliation, Update PMH in EMR and Vital Signs OB Clinic Coordination of Care: Complex Care and Chronic Disease 1-5, Consent,records obtained, informed consent, Education Simp Pt/Fam, Lab and Imaging orders, Results/Orders obtained and Staff clarify orders Special Needs: Heart tones Established Patient Charge Established Patient Point Assignment: 135 Established Patient Point Charge: EP Level 4 (120-155) Assessment & Plan Diagnosis / Problem List (1) Encounter for supervision of high risk in third trimester, antepartum: Status: Acute Plan I prescribed Gyne-Lotrimin x 7 and metronidazole gel x 7. Reviewed how to use method. Reviewed comfort measures vaginitis. Avoid feminine products. Discussed labor precautions and kick count twice a day. We will refax patient's MFM referral to [facility]. Return in 2 weeks OB check. Additional Plan Follow Up: 2 Weeks (obc)
== END 2024-11-09 10:47 | disposition home or self-care (01) ==
LOC: HODSOBC 10:06
PROVIDERS: Supervising Provider Advanced Practice Midwife; Visit Provider Advanced Practice Midwife
DX: O09.893 Supervision of other high risk pregnancies, third trimester (principal); O23.593 Infection of other part of genital tract in pregnancy, third trimester; Z3A.31 31 weeks gestation of pregnancy; N76.0 Acute vaginitis; Z91.040 Latex allergy status
CPT/HCPCS: 99214; G0463

== ENCOUNTER 2024-12-04 09:32 | Outpatient (AMB) | payer MEDICAID, SELFPAY ==
[2024-12-04 10:13] VITALS: BP 135/88; PULSE 97; RESP 18; TEMP 36.6; O2SAT 97; BMI 33.7
--- NOTE | 2024-12-04 10:13 | OBCLNT_ITS ---
Vital Signs 12/04/24 10:13 Height 1.61 m Height Method Stated Weight 87.6 kg Weight Measurement Method Standing Scale BMI 33.7 BP 135/88 H Blood Pressure Source Automatic Cuff Blood Pressure Location Left Upper Arm Position Sitting Respiration 18 Pulse 97 Pulse Source Monitor Temp 97.8 F Temp Source Oral Pulse Oximetry (%) 97 Oxygen Delivery Method Room Air Allergies/Home Meds Allergies & Medications Allergies latex Allergy (Unknown, Verified 12/04/24 12:22) Medication Reconciliation No Known Home Medications 12/04/24 [History Confirmed 12/04/24] Intake Visit Data Collection New Patient or Established: Established Patient (seen at [facility] within 3 years) Reason for Visit:: OBC Seen by Clinical Staff ONLY (RN/MA): No Capacity Planner Required: No Do You Feel Safe at Home: Yes Authorities Contacted: N/A PCP or OBGYN visit in last 3 months: Yes Date of Last PCP or OBGYN visit: 11/09/24 Hx Now: Yes Are you currently on any form of Control: No Pain Present Currently: No Pain Scale Used: Rivas-Bojorquez/Numerical Pain scale:: 0 Smoking Status Smoking Status: Never smoker Immunizations Flu Vaccine in the Last 12 Months: No Flu Vaccine Exclusion Criteria: No Exclusion Criteria Questionnaires Covid-19 Vaccine Questionnaire Has patient been vacinated for Covid-19 Have you been vacinated for Covid-19: Yes PHQ-9 PHQ-2 Over the last 2 weeks, how often have you been bothered by any of the following problems? 1. Little interest or pleasure in doing things: not at all 2. Feeling down, depressed, or hopeless: not at all Total score: 0 PHQ-9 3. Trouble falling or staying asleep, or sleeping too much: Not at all 4. Feeling tired or having little energy: Not at all 5. Poor appetite or overeating: Not at all 6. Feeling bad about yourself - or that you are a failure or have let yourself or your family down: Not at all 7. Trouble concentrating on things, such as reading the newspaper or watching television: Not at all 8. Moving or speaking so slowly that other people could have noticed? - Or the opposite - being so fidgety or restless that you have been moving around a lot more than usual: not at all 9. Thoughts that you would be better off or of hurting yourself in some way: Not at all Total score: 0 If you checked off any problems, how difficult have these problems made it for you to do your work, take care of things at home, or get along with other people?: not difficult at all Source: Developed by Drs. Sebastián Gonzáles, Layla Arias, Oh Tomas and colleagues, with an educational sigifredo from [employer]. Depression screen completed yes Social History Living Situation History Lives With: Family Housing: House Tobacco History Smoking Status: Never smoker Second Hand Smoke Exposure: No Alcohol History Alcohol Intake: Never Domestic Abuse History Do You Feel Safe at Home: Yes Care OB Visit Log OB Flowsheet Initial Weight: Not Recorded Date -?-?-?-?--?-?-?-?-?-?-?-?- EGA Weight BP Alb Glu CTX Pres Fundal ht FHR Mov Dilation Station Effacement Hx Notes Visit Note 06/29/24 -?-?-?-?-?-?-?-?-?-?-?-?- 12w 2d 72.121 kg 135/91 absent unknown 13 156 absent 24-year-old 1 for OB appointment. Last period was April 04, 2024. And this gives due date January 08, 2025. Denies any SAB complaints thus far. Patient reports hyperemesis. She is nauseous all day and has been vomiting nonstop. Unable to eat even small amounts of food. Unable to drink liquids. She has been to the ER now 4 times. Reports that she was treated with an IV and then sent home not on any antiemetics. I spent time with patient today discussing comfort measures for hyperemesis. Such as dry diet. I recommended sea bands to the patient to try. Gave a prescription for Zofran 8 mg sublingual's I gave 30 of those with refills and then I also gave him Phenergan 12.5 suppositories that is every 6. If she is unable to tolerate the p.o. Zofran. Patient is states that she can tolerate gummy so she is taking those. OB panel with NIPT and carrier screens and drug screen today. Scheduled maternal- medicine sono for evaluation of anatomy. Early anatomy scan. Discussed SAB precautions and patient will return in 2 weeks for follow-up 07/13/24 -?-?-?-?-?-?-?-?-?-?-?-?- 14w 2d 75.466 kg 131/78 absent unknown 14 156 absent patient will get NIPT and ob panel today. reports nausea improving with zofran, MFM appointment pending. denies sab complaints, AFP NV advised to get labs. mfm appointment pending. continue zofran as needed for nausea, discuss dry diet. sab precaution, AFP NV 08/17/24 -?-?-?-?-?-?-?-?-?-?-?-?- 19w 2d 72.802 kg 115/79 absent unknown 19 154 absent light FM, no sab complaints. patient not sched for work x 3 week AFP, comfort measure for increased saliva. sab precaution. patient will call [facility] for sono. rtc 4 week 09/14/24 -?-?-?-?-?-?-?-?-?-?-?-?- 23w 2d 76.657 kg 115/75 absent unknown 23 145 absent Increased saliva. fetus active, denies leaking,bleeding or UC, nausea improved. anatomy scan pending 3rd ti labs toda y. f/u on MFM appointment, discuss ptl precaution,hydrTE. COMFORT MEASURE. rtc 4 week 10/19/24 -?-?-?-?-?-?-?-?-?-?-?-?- 28w 2d 75.523 kg 119/81 absent unknown 28 145 active Able to feel movement better now. Denies any signs symptoms of labor. Patient had an ultrasound at [facility] today. Continued itching and burning. And new swab results was positive for BV and positive for yeast ELECTRICAL MACHINE BUILDER Lotrimin 1% x 7 days ordered for patient. Flagyl 500 p.o. twice daily x 7 also ordered. Advised patient to get her third trimester labs. Discussed labor precautions. Increase fluids. And return in 3 weeks for OB check 11/09/24 -?-?-?-?-?-?-?-?-?-?-?-?- 31w 2d 79.379 kg 126/83 absent unknown 31 145 active Reports movement. Denies leaking or bleeding. Patient had questions about MFM referral. And she still has vaginitis complaints would like a refill on her Follow-up on maternal- medicine referral. Refill ELECTRICAL MACHINE BUILDER Lotrimin 1%. And give MetroGel twice daily for 7 days. Kick count twice weekly. Return in 2 weeks OB 12/04/24 -?-?-?-?-?-?-?-?-?-?-?-?- 34w 6d 87.6 kg 135/88 absent cephalic 33 145 active Denies PIH complaints. Reports good movement. Denies leaking or bleeding. Patient states she does have a little bit of a headache but she is not taking anything for it it goes away. No visual changes TD AP, discuss PIH s/s, labor precaution, ER precaution and parameters. [facility] bid, to [facility] for PIH eval. MFM 1 week JAMARCUS Calculator Estimated Delivery Date Method Current WG Current Estimate 01/09/25 LMP (Certain) 34w 6d Other Estimates 01/06/25 Ultrasound #1 35w 2d 01/09/25 Manual 34w 6d final JAMARCUS: 12/13 11/05. EFW: 32.3% Notes Visit Date: 11/09/24 Last Updated by: Krystal Mcgee CNM 3rd tri labs. wnl Visit Date: 09/14/24 Last Updated by: Krystal Mcgee CNM 24 yo . LMP 04/04/24. EDC 01/09/25 Visit Date: 08/17/24 Last Updated by: Krystal Mcgee CNM 08/16: O+,abs-, rpr;;nr, rub:NI, hbsag-, hiv-, gc/ct-, NIPT/neg, CF/SMA- Visit Date: 06/29/24 Last Updated by: Krystal Mcgee CNM 24 yo . LMP 04/04/24. EDC 01/08/25. Hyperemesis Office Procedures OBC Clinic LOC & Office Proc's Nursing/Assessment Patient Status: Established Patient OB Clinic Nursing Assessment: Medication Reconciliation, Update PMH in EMR and Vital Signs OB Clinic Coordination of Care: Consent,records obtained, informed consent, Educ ation Simp Pt/Fam, Lab and Imaging orders, Results/Orders obtained and Staff clarify orders Special Needs: Heart tones Established Patient Charge Established Patient Point Assignment: 110 Established Patient Point Charge: EP Level 3 (80-115) Medication Given Medication Given Medication Given: Yes Immunizations diphth,pertus(acell),tetanus 2.5 Lf unit-8 mcg-5 Lf/0.5mL IM syringe Performing Provider: Krystal Mcgee CNM Performing Location: [facility] Administered by: Carmela Fofana MA on 12/04/24 13:16 Dose Route Admin Location Dispensed Lot Number Expiration Date Pack age NDC NDC Service Order Dispatcher 0.5 mL IM Left Deltoid 0.5 mL [id number] 12/31/26 80606-765-30 [id number] [email or web address] VIS Given Date VIS Provided VIS Publication Date 12/04/24 Single Vaccine 24 Eligibility Eligibility Date Funding Source [facility] Assessment & Plan Diagnosis / Problem List (1) Encounter for supervision of high risk in third trimester, antepartum: Status: Acute Plan Tdap today. Patient to labor and delivery for PIH eval. Discussed signs and symptoms of PIH and parameters. Discussed ER precautions. Kick count twice a day. Increase fluids. Patient has ultrasound next week. Return in a week for GBS. Additional Plan Follow Up: 1 Week (obc)
== END 2024-12-04 10:56 | disposition home or self-care (01) ==
LOC: HODSOBC 09:32
PROVIDERS: Supervising Provider Advanced Practice Midwife; Visit Provider Advanced Practice Midwife
DX: O09.893 Supervision of other high risk pregnancies, third trimester (principal); O99.891 Other specified diseases and conditions complicating pregnancy; R51.9 Headache, unspecified; Z3A.34 34 weeks gestation of pregnancy; Z23 Encounter for immunization
CPT/HCPCS: 90471; 90715; 99213; G0463

== ENCOUNTER 2024-12-04 11:10 | Outpatient (CLI) | payer MEDICAID, SELFPAY ==
[2024-12-04] VITALS (36 sets, daily range): BP systolic 123–139; BP diastolic 85–93; PULSE 66–80; RESP 17–99; TEMP 36.8; O2SAT 97–100; BMI 34.5
[2024-12-04 13:36] LABS: Collection Type, Urine Clean Catch
[2024-12-04 13:40] LABS: Basophils # (Auto) 0.0 Thou/mm3 (0.0-0.2); Basophils % (Auto) 0 % (0-2.5); Eosinophils # (Auto) 0.0 Thou/mm3 (0.0-0.5); Eosinophils % (Auto) 0 % (0-10); Hematocrit 32.3 % (36.0-46.0); Hemoglobin 11.1 g/dL (12.0-16.0); Immature Granulocytes Auto 0.08 Thou/mm3 (0.00-0.00); Lymphocytes # (Auto) 2.0 Thou/mm3 (1.0-4.8); Lymphocytes % (Auto) 18 % (10-50); Mean Corpuscular HGB Conc 34.4 g/dl (31.0-37.0); Mean Corpuscular Hemoglobin 29.4 pg (25.0-35.0); Mean Corpuscular Volume 85 fL (80-100); Monocytes # (Auto) 0.8 Thou/mm3 (0.0-0.8); Monocytes % (Auto) 7 % (0-12); Neutrophils # (Auto) 8.2 Thou/mm3 (1.8-7.7); Neutrophils % (Auto) 74 % (37-80); Nucleated Red Blood Cell # 0.00 Thou/mm3 (0.00-0.00); Nucleated Red Blood Cell % 0 /100 WBC (0); Platelet Count 312 Thou/mm3 (140-440); RDW Standard Deviation 41.1 fL (36.4-46.3); Red Blood Count 3.78 Miln/mm3 (4.00-5.20); White Blood Count 11.2 Thou/mm3 (3.6-11.0)
[2024-12-04 13:50] LABS: Creatinine,Random Urine 20 mg/dL (30-125); Protein Total, Random Urine 12 mg/dL (1-14)
[2024-12-04 14:01] LABS: Bacteria,Urine 1+; Bilirubin,Urine Negative (Negative); Blood,Urine Negative (Negative); Clarity,Urine Clear (Clear/Hazy); Color,Urine Colorless (Lt Yel-Yel); Glucose, Urine Negative (Negative); Ketones,Urine Negative (Negative); Leukocyte Esterase,Urine Positive (Negative); Nitrite,Urine Negative (Negative); PH,Urine 7.0 (5.0-7.0); Protein,Urine Negative (Neg - Trace); RBC,Urine 3 /hpf (0-3); Specific Gravity,Urine 1.004 (1.001-1.035); Squamous Epithelial Cell,Urine 6 /hpf (0-5); Urobilinogen,Urine Negative mg/dL (0.0-1.0); WBC,Urine 2 /hpf (0-5)
[2024-12-04 14:06] LABS: Alanine Aminotransferase < 7 U/L (10-49); Albumin, Serum 3.9 gm/dL (3.5-5.0); Albumin/Globulin Ratio 1.9 (1.2-2.2); Alkaline Phosphatase 120 U/L (46-116); Anion Gap 11 (7-16); Aspartate Amino Transferase 13 U/L (0-34); BUN/Creatinine Ratio 9 Ratio (12-20); Bilirubin,Total 0.5 mg/dL (0.3-1.2); Blood Urea Nitrogen 6 mg/dL (9-23); Calcium 9.4 mg/dL (8.3-10.6); Calcium (Corrected) 9.5 mg/dL (8.5-10.1); Carbon Dioxide 23.8 mMol/L (20.0-31.0); Chloride 102 mMol/L (98-107); Creatinine (Component) 0.7 mg/dL (0.6-1.3); Estimated Creatinine Clearance 128.4 mL/min (>60); Globulin 2.1 gm/dL (2.3-3.5); Glucose 76 mg/dL (74-106); Osmolality,Calculated 270 (275-295); Potassium 4.4 mMol/L (3.4-5.1); Sodium 137 mMol/L (136-145); Total Protein 6.0 gm/dL (5.7-8.2); Uric Acid 5.7 mg/dL (3.1-7.8); eGFR > 60 See Note
[2024-12-04 14:43] LABS: Fibrinogen 584 mg/dL (175-375); INR 0.9 (0.9-1.3); Partial Thromboplastin Time 26.3 Seconds (22.0-36.0); Prothrombin Time 9.3 Seconds (9.0-12.2)
[2024-12-04] MEDS: BETAMET ACET/BETAMET NA PH (Celestone) 6 MG/ML VIAL 12 MG IM (14:45)
== END 2024-12-04 15:52 | disposition home or self-care (01) ==
LOC: S4S1 11:15 → S4SX 11:16
PROVIDERS: Referring Provider Obstetrics & Gynecology; Visit Provider Obstetrics & Gynecology
DX: Z34.03 Encounter for supervision of normal first pregnancy, third trimester (principal); Z36.89 Encounter for other specified antenatal screening; Z3A.35 35 weeks gestation of pregnancy
CPT/HCPCS: 36415; 59025; 80053; 81001; 82570; 84156; 84550; 85025; 85384; 85610; 85730; 87086; 96372; J0702

== ENCOUNTER 2024-12-05 19:14 | Observation (INO) | payer MEDICAID, SELFPAY ==
[2024-12-05] VITALS (13 sets, daily range): BP systolic 124–149; BP diastolic 79–95; PULSE 73–93; RESP 18–98; TEMP 36.8; O2SAT 96–99; BMI 34.7
--- NOTE | 2024-12-05 19:33 | XR_ITS ---
Examination: Complete OB ultrasound greater than 14 weeks Date and time of exam: December 05, 2024, 2100 hours INDICATIONS: Diagnosis gestational hypertension Findings: Viable intrauterine single fetus with single amniotic sac presentation cephalic Cardiac motion 143 bpm Placenta anterior grade 2 Umbilical cord insertion 3 vessel seen Amniotic fluid index 10.2 cm Cervix 3.7 cm Ovaries obscured by the fetus. Composite estimated gestational age based on BPD, head circumference, abdominal circumference, femur length is 33 weeks 3 days Estimated weight 2205.8 g. Survey of intracranial anatomy, spinal anatomy, abdominal anatomy, four-chamber heart performed with no abnormalities identified. Impression: Viable intrauterine gestation in cephalic presentation.
[2024-12-05] MEDS: BETAMET ACET/BETAMET NA PH (Celestone) 6 MG/ML VIAL 12 MG IM (19:50)
[2024-12-05 20:28] LABS: Protein Total, Urine 21 mg/dL (1-14)
[2024-12-05 20:44] LABS: Protein Total, 24 hr Urine 578 mg/24hr (<149); Protein Total, Urine Volume 2750 mL/24hr (600-1800)
== END 2024-12-05 23:37 | disposition home or self-care (01) ==
PROVIDERS: Obstetrics & Gynecology; Admitting Provider Advanced Practice Midwife; Visit Provider Advanced Practice Midwife
DX: O13.3 Gestational [pregnancy-induced] hypertension without significant proteinuria, third trimester (principal); Z3A.33 33 weeks gestation of pregnancy
CPT/HCPCS: 59025; 59899; 76805; 84156; 96372; J0702

== ENCOUNTER 2024-12-08 20:40 | Outpatient (CLI) | payer MEDICAID, SELFPAY ==
[2024-12-08] VITALS (10 sets, daily range): BP systolic 130–132; BP diastolic 80–87; PULSE 68–79; RESP 18–98; TEMP 37.1; O2SAT 97–98; BMI 34.7
== END 2024-12-08 21:32 | disposition home or self-care (01) ==
LOC: S4S1 20:42 → S4SX 20:43
PROVIDERS: Referring Provider Obstetrics & Gynecology; Visit Provider Obstetrics & Gynecology
DX: Z34.03 Encounter for supervision of normal first pregnancy, third trimester (principal); Z36.9 Encounter for antenatal screening, unspecified; Z3A.35 35 weeks gestation of pregnancy
CPT/HCPCS: 59025

== ENCOUNTER 2024-12-09 11:10 | Outpatient (AMB) | payer MEDICAID, SELFPAY ==
[2024-12-09 11:33] VITALS: BP 134/92; PULSE 76; RESP 14; TEMP 36.6; O2SAT 97; BMI 34.0
--- NOTE | 2024-12-09 11:33 | OBCLNT_ITS ---
Vital Signs 12/09/24 11:33 Height 1.6 m Height Method Stated Weight 87.203 kg Weight Measurement Method Standing Scale BMI 34.0 BP 134/92 H Blood Pressure Source Automatic Cuff Blood Pressure Location Left Upper Arm Position Sitting Respiration 14 Pulse 76 Pulse Source Monitor Temp 98 F Temp Source Oral Pulse Oximetry (%) 97 Oxygen Delivery Method Room Air Allergies/Home Meds Allergies & Medications Allergies latex Allergy (Unknown, Verified 12/09/24 11:34) Medication Reconciliation labetalol 200 mg tablet 100 mg (1/2 x 200 mg) PO TID 30 days #45 tabs 12/09/24 [Rx] Intake Visit Data Collection New Patient or Established: Established Patient (seen at [facility] within 3 years) Reason for Visit:: CARE Seen by Clinical Staff ONLY (RN/MA): No Groover Operator Required: No Do You Feel Safe at Home: Yes Authorities Contacted: N/A PCP or OBGYN visit in last 3 months: Yes Hx Now: Yes Are you currently on any form of Control: No Pain Present Currently: No Pain Scale Used: Rivas-Bojorquez/Numerical Pain scale:: 0 Smoking Status Smoking Status: Never smoker Immunizations Flu Vaccine in the Last 12 Months: Yes Flu Vaccine Exclusion Criteria: Already Received Questionnaires Covid-19 Vaccine Questionnaire Has patient been vacinated for Covid-19 Have you been vacinated for Covid-19: Yes PHQ-9 PHQ-2 Over the last 2 weeks, how often have you been bothered by any of the following problems? 1. Little interest or pleasure in doing things: not at all 2. Feeling down, depressed, or hopeless: not at all Total score: 0 PHQ-9 3. Trouble falling or staying asleep, or sleeping too much: Not at all 4. Feeling tired or having little energy: Not at all 5. Poor appetite or overeating: Not at all 6. Feeling bad about yourself - or that you are a failure or have let yourself or your family down: Not at all 7. Trouble concentrating on things, such as reading the newspaper or watching television: Not at all 8. Moving or speaking so slowly that other people could have noticed? - Or the opposite - being so fidgety or restless that you have been moving around a lot more than usual: not at all 9. Thoughts that you would be better off or of hurting yourself in some way: Not at all Total score: 0 Source: Developed by Drs. Sebastián Gonzáles, Layla Arias, Oh Tomas and colleagues, with an educational sigifredo from [employer]. Depression screen completed yes Social History Living Situation History Lives With: Family Housing: House Tobacco History Smoking Status: Never smoker Second Hand Smoke Exposure: No Alcohol History Alcohol Intake: Never Domestic Abuse History Do You Feel Safe at Home: Yes Care OB Visit Log OB Flowsheet Initial Weight: Not Recorded Date -?-?-?-?-?-?-?-?-?-?-?-?- EGA Weight BP Alb Glu CTX Pres Fundal ht FHR Mov Dilation Station Effacement Hx Notes Visit Note 06/29/24 -?-?-?-?-?-?-?-?-?-?-?-?- 12w 2d 72.121 kg 135/91 absent unknown 13 156 absent 24-year-old 1 for OB appointment. Last period was April 04, 2024. And this gives due date January 08, 2025. Denies any SAB complaints thus far. Patient reports hyperemesis. She is nauseous all day and has been vomiting nonstop. Unable to eat even small amounts of food. Unable to drink liquids. She has been to the ER now 4 times. Reports that she was treated with an IV and then sent home not on any antiemetics. I spent time with patient today discussing comfort measures for hyperemesis. Such as dry diet. I recommended sea bands to the patient to try. Gave a prescription for Zofran 8 mg sublingual's I gave 30 of those with refills and then I also gave him Phenergan 12.5 suppositories that is every 6. If she is unable to tolerate the p.o. Zofran. Patient is states that she can tolerate gummy so she is taking those. OB panel with NIPT and carrier screens and drug screen today. Scheduled maternal- medicine sono for evaluation of anatomy. Early anatomy scan. Discussed SAB precautions and patient will return in 2 weeks for follow-up 07/13/24 -?-?-?-?-?-?-?-?-?-?-?-?- 14w 2d 75.466 kg 131/78 absent unknown 14 156 absent patient will get NIPT and ob panel today. reports nausea improving with zofran, MFM appointment pending. denies sab complaints, AFP NV advised to get labs. mfm appointment pending. continue zofran as needed for nausea, discuss dry diet. sab precaution, AFP NV 08/17/24 -?-?-?-?-?-?-?-?-?-?-?-?- 19w 2d 72.802 kg 115/79 absent unknown 19 154 absent light FM, no sab complaints. patient not sched for work x 3 week AFP, comfort measure for increased saliva. sab precaution. patient will call [facility] for sono. rtc 4 week 09/14/24 -?-?-?-?-?-?-?-?-?-?-?-?- 23w 2d 76.657 kg 115/75 absent unknown 23 145 absent Increased saliva. fetus active, denies leaking,bleeding or UC, nausea improved. anatomy scan pending 3rd ti labs toda y. f/u on MFM appointment, discuss ptl precaution,hydrTE. COMFORT MEASURE. rtc 4 week 10/19/24 -?-?-?-?-?-?-?-?-?-?-?-?- 28w 2d 75.523 kg 119/81 absent unknown 28 145 active Able to feel movement better now. Denies any signs symptoms of labor. Patient had an ultrasound at [facility] today. Continued itching and burning. And new swab results was positive for BV and positive for yeast FILE CLERK DATA ENTRY Lotrimin 1% x 7 days ordered for patient. Flagyl 500 p.o. twice daily x 7 also ordered. Advised patient to get her third trimester labs. Discussed labor precautions. Increase fluids. And return in 3 weeks for OB check 11/09/24 -?-?-?-?-?-?-?-?-?-?-?-?- 31w 2d 79.379 kg 126/83 absent unknown 31 145 active Reports movement. Denies leaking or bleeding. Patient had questions about MFM referral. And she still has vaginitis complaints would like a refill on her Follow-up on maternal- medicine referral. Refill FILE CLERK DATA ENTRY Lotrimin 1%. And give MetroGel twice daily for 7 days. Kick count twice weekly. Return in 2 weeks OB 12/04/24 -?-?-?-?-?-?-?-?-?-?-?-?- 34w 6d 87.6 kg 135/88 absent cephalic 33 145 active Denies PIH complaints. Reports good movement. Denies leaking or bleeding. Patient states she does have a little bit of a headache but she is not taking anything for it it goes away. No visual changes TD AP, discuss PIH s/s, labor precaution, ER precaution and parameters. [facility] bid, to [facility] for PIH eval. MFM 1 week 12/09/24 -?-?-?-?-?-?-?-?-?-?-?-?- 35w 4d 87.203 kg 134/92 occasional cephalic 35 145 active denies PIH complaints, ER visit 12/08, DC home. per md consult, Start labetolol 100 tid, NST R, no leaking or bleeding, fetus active Start labetalol 100 p.o. 3 times daily. Discussed PIH precautions. Urine was negative for nitrites today. I started biweekly NST BPP. Reviewed kick count twice a day. Patient will follow-up on Saturday for BP check and GBS. Start labetalol 100 p.o. 3 t imes daily. Discussed PIH precautions. Urine was negative for nitrites today. I started biweekly NST BPP. Reviewed kick count twice a day. Patient will follow-up on Saturday for BP check and GBS.IOL 12/27/24 JAMARCUS Calculator Estimated Delivery Date Method Current WG Current Estimate 01/09/25 LMP (Certain) 35w 4d Other Estimates 01/06/25 Ultrasound #1 36w 0d 01/20/25 Ultrasound #2 34w 0d 01/09/25 Manual 35w 4d final JAMARCUS: 12/13 11/05. EFW: 32.3% Notes Visit Date: 11/09/24 Last Updated by: Krystal Mcgee CNM 3rd tri labs. wnl Visit Date: 09/14/24 Last Updated by: Krystal Mcgee CNM 24 yo . LMP 04/04/24. EDC 01/09/25 Visit Date: 08/17/24 Last Updated by: Krystal Mcgee CNM 08/16: O+,abs-, rpr;;nr, rub:NI, hbsag-, hiv-, gc/ct-, NIPT/neg, CF/SMA- Visit Date: 06/29/24 Last Updated by: Krystal Mcgee CNM 24 yo . LMP 04/04/24. EDC 01/08/25. Hyperemesis Office Procedures OBC Clinic LOC & Office Proc's Nursing/Assessment Patient Status: Established Patient OB Clinic Nursing Assessment: Medication Reconciliation, Update PMH in EMR and Vital Signs OB Clinic Coordination of Care: Complex Care and Chronic Disease 1-5, Consent,records obtained, informed consent, Education Simp Pt/Fam, 1 Ins Authorization, Lab and Imaging orders, Results/Orders obtained and Staff clarify orders Special Needs: Heart tones Established Patient Charge Established Patient Point Assignment: 150 Established Patient Point Charge: EP Level 4 (120-155) Assessment & Plan Diagnosis / Problem List (1) Encounter for supervision of high risk in third trimester, antepartum: Status: Acute (2) Gestational [-induced] hypertension without significant proteinuria, third trimester: Status: Acute Plan Start labetalol 100 p.o. 3 times daily. Reviewed danger signs symptoms, and PIH precautions with patient. Discussed ER parameters. Kick count twice a day. Increase fluids. Continue prenatals. Start biweekly NST BPP. Patient will be scheduled at 37+ weeks for induction. IOL 12/27/24 Additional Plan Follow Up: 2 Days (BP check/gbs)
== END 2024-12-09 11:50 | disposition home or self-care (01) ==
LOC: HODSOBC 11:10
PROVIDERS: Supervising Provider Advanced Practice Midwife; Visit Provider Advanced Practice Midwife
DX: O09.893 Supervision of other high risk pregnancies, third trimester (principal); O13.3 Gestational [pregnancy-induced] hypertension without significant proteinuria, third trimester; Z3A.35 35 weeks gestation of pregnancy; Z91.040 Latex allergy status
CPT/HCPCS: 99214; G0463

== ENCOUNTER 2024-12-10 04:35 | Observation (INO) | payer MEDICAID, SELFPAY ==
[2024-12-10] VITALS (10 sets, daily range): BP systolic 122–131; BP diastolic 87–92; PULSE 69–162; RESP 18–97; TEMP 36.8; O2SAT 82–97; BMI 34.8
[2024-12-10] MEDS: ACETAMINOPHEN 500 MG TABLET 1000 MG PO (05:21)
== END 2024-12-10 06:05 | disposition home or self-care (01) ==
PROVIDERS: Admitting Provider Obstetrics & Gynecology; Visit Provider Obstetrics & Gynecology
DX: O26.893 Other specified pregnancy related conditions, third trimester (principal); Z3A.36 36 weeks gestation of pregnancy; R51.9 Headache, unspecified
CPT/HCPCS: 59025; 59899; A9270

== ENCOUNTER 2024-12-11 08:27 | Outpatient (AMB) | payer MEDICAID, SELFPAY ==
[2024-12-11 08:57] VITALS: BP 126/84; PULSE 94; RESP 18; TEMP 36.4; O2SAT 97; BMI 33.9
--- NOTE | 2024-12-11 08:57 | OBCLNT_ITS ---
Vital Signs 12/11/24 08:57 Height 1.61 m Height Method Stated Weight 87.997 kg Weight Measurement Method Standing Scale BMI 33.9 BP 126/84 Blood Pressure Source Automatic Cuff Blood Pressure Location Left Upper Arm Position Sitting Respiration 18 Pulse 94 Pulse Source Monitor Temp 97.5 F Temp Source Oral Pulse Oximetry (%) 97 Oxygen Delivery Method Room Air Allergies/Home Meds Allergies & Medications Allergies latex Allergy (Unknown, Verified 12/11/24 09:00) Medication Reconciliation labetalol 200 mg tablet 100 mg (1/2 x 200 mg) PO TID 30 days #45 tabs 12/09/24 [Rx Confirmed 12/11/24] Intake Visit Data Collection New Patient or Established: Established Patient (seen at [facility] within 3 years) Reason for Visit:: CARE/ NEEDS GBS Seen by Clinical Staff ONLY (RN/MA): No Tube Bender Hand Required: No Do You Feel Safe at Home: Yes Authorities Contacted: N/A PCP or OBGYN visit in last 3 months: Yes Hx Now: Yes Are you currently on any form of Control: No Pain Present Currently: No Pain Scale Used: Rivas-Bojorquez/Numerical Pain scale:: 0 Smoking Status Smoking Status: Never smoker Immunizations Flu Vaccine in the Last 12 Months: Yes Flu Vaccine Exclusion Criteria: Already Received Questionnaires Covid-19 Vaccine Questionnaire Has patient been vacinated for Covid-19 Have you been vacinated for Covid-19: Yes PHQ-9 PHQ-2 Over the last 2 weeks, how often have you been bothered by any of the following problems? 1. Little interest or pleasure in doing things: not at all 2. Feeling down, depressed, or hopeless: not at all Total score: 0 PHQ-9 3. Trouble falling or staying asleep, or sleeping too much: Not at all 4. Feeling tired or having little energy: Not at all 5. Poor appetite or overeating: Not at all 6. Feeling bad about yourself - or that you are a failure or have let yourself or your family down: Not at all 7. Trouble concentrating on things, such as reading the newspaper or watching television: Not at all 8. Moving or speaking so slowly that other people could have noticed? - Or the opposite - being so fidgety or restless that you have been moving around a lot more than usual: not at all 9. Thoughts that you would be better off or of hurting yourself in some way: Not at all Total score: 0 Source: Developed by Drs. Sebastián Gonzáles, Layla Arias, Oh Tomas and colleagues, with an educational sigifredo from [employer]. Depression screen completed yes Social History Living Situation History Lives With: Family Housing: House Tobacco History Smoking Status: Never smoker Second Hand Smoke Exposure: No Alcohol History Alcohol Intake: Never Domestic Abuse History Do You Feel Safe at Home: Yes Care OB Visit Log OB Flowsheet Initial Weight: Not Recorded Date -?-?-?-?-?-?-?-?-?-?-?-?- EGA Weight BP Alb Glu CTX Pres Fundal ht FHR Mov Dilation Station Effacement Hx Notes Visit Note 06/29/24 -?-?-?-?-?-?-?-?-?-?-?-?- 12w 2d 72.121 kg 135/91 absent unknown 13 156 absent 24-year-old 1 for OB appointment. Last period was April 04, 2024. And this gives due date January 08, 2025. Denies any SAB complaints thus far. Patient reports hyperemesis. She is nauseous all day and has been vomiting nonstop. Unable to eat even small amounts of food. Unable to drink liquids. She has been to the ER now 4 times. Reports that she was treated with an IV and then sent home not on any antiemetics. I spent time with patient today discussing comfort measures for hyperemesis. Such as dry diet. I recommended sea bands to the patient to try. Gave a prescription for Zofran 8 mg sublingual's I gave 30 of those with refills and then I also gave him Phenergan 12.5 suppositories that is every 6. If she is unable to tolerate the p.o. Zofran. Patient is states that she can tolerate gummy so she is taking those. OB panel with NIPT and carrier screens and drug screen today. Scheduled maternal- medicine sono for evaluation of anatomy. Early anatomy scan. Discussed SAB precautions and patient will return in 2 weeks for follow-up 07/13/24 -?-?-?-?-?-?-?-?-?-?-?-?- 14w 2d 75.466 kg 131/78 absent unknown 14 156 absent patient will get NIPT and ob panel today. reports nausea improving with zofran, MFM appointment pending. denies sab complaints, AFP NV advised to get labs. mfm appointment pending. continue zofran as needed for nausea, discuss dry diet. sab precaution, AFP NV 08/17/24 -?-?-?-?-?-?-?-?-?-?-?-?- 19w 2d 72.802 kg 115/79 absent unknown 19 154 absent light FM, no sab complaints. patient not sched for work x 3 week AFP, comfort measure for increased saliva. sab precaution. patient will call [facility] for sono. rtc 4 week 09/14/24 -?-?-?-?-?-?-?-?-?-?-?-?- 23w 2d 76.657 kg 115/75 absent unknown 23 145 absent Increased saliva. fetus active, denies leaking,bleeding or UC, nausea improved. anatomy scan pending 3rd ti labs toda y. f/u on MFM appointment, discuss ptl precaution,hydrTE. COMFORT MEASURE. rtc 4 week 10/19/24 -?-?-?-?-?-?-?-?-?-?-?-?- 28w 2d 75.523 kg 119/81 absent unknown 28 145 active Able to feel movement better now. Denies any signs symptoms of labor. Patient had an ultrasound at [facility] today. Continued itching and burning. And new swab results was positive for BV and positive for yeast PHYSICIAN/OPHTHALMOLOGIST Lotrimin 1% x 7 days orde red for patient. Flagyl 500 p.o. twice daily x 7 also ordered. Advised patient to get her third trimester labs. Discussed labor precautions. Increase fluids. And return in 3 weeks for OB check 11/09/24 -?-?-?-?-?-?-?-?-?-?-?-?- 31w 2d 79.379 kg 126/83 absent unknown 31 145 active Reports movement. Denies leaking or bleeding. Patient had questions about MFM referral. And she still has vaginitis complaints would like a refill on her Follow-up on maternal- medicine referral. Refill PHYSICIAN/OPHTHALMOLOGIST Lotrimin 1%. And give MetroGel twice daily for 7 days. Kick count twice weekly. Return in 2 weeks OB 12/04/24 -?-?-?-?-?-?-?-?-?-?-?-?- 34w 6d 87.6 kg 135/88 absent cephalic 33 145 active Denies PIH complaints. Reports good movement. Denies leaking or bleeding. Patient states she does have a little bit of a headache but she is not taking anything for it it goes away. No visual changes TD AP, discuss PIH s/s, labor precaution, ER precaution and parameters. [facility] bid, to [facility] for PIH eval. MFM 1 week 12/09/24 -?-?-?-?-?-?-?-?-?-?-?-?- 35w 4d 87.203 kg 134/92 occasional cephalic 35 145 active denies PIH complaints, ER visit 12/08, DC home. per md consult, Start labetolol 100 tid, NST R, no leaking or bleeding, fetus active Start labetalol 100 p.o. 3 times daily. Discussed PIH precautions. Urine was negative for nitrites today. I started biweekly NST BPP. Reviewed kick count twice a day. Patient will follow-up on Saturday for BP check and GBS. Start labetalol 100 p.o. 3 t imes daily. Discussed PIH precautions. Urine was negative for nitrites today. I started biweekly NST BPP. Reviewed kick count twice a day. Patient will follow-up on Saturday for BP check and GBS.IOL 12/27/24 12/11/24 -?-?-?-?-?-?-?-?-?-?-?-?- 35w 6d 87.997 kg 126/84 occasional cephalic 35 145 active Occasional headache. Because of her Tylenol. Denies blurred vision or epigastric pain. Reports good movement. Denies leaking, bleeding, contractions. GBS today. Discussed signs and symptoms preeclampsia and danger signs and symptoms. Discussed ER precautions. Continue biweekly NST BPP. Patient was started. Continue labetalol 100 p.o. 3 times daily. Increase fluids. Return in a week OB check. JAMARCUS Calculator Estimated Delivery Date Method Current WG Current Estimate 01/09/25 LMP (Certain) 35w 6d Other Estimates 01/06/25 Ultrasound #1 36w 2d 01/20/25 Ultrasound #2 34w 2d 01/09/25 Manual 35w 6d final JAMARCUS: 12/13 11/05. EFW: 32.3% Notes Visit Date: 11/09/24 Last Updated by: Krystal Mcgee CNM 3rd tri labs. wnl Visit Date: 09/14/24 Last Updated by: Krystal Mcgee CNM 24 yo . LMP 04/04/24. EDC 01/09/25 Visit Date: 08/17/24 Last Updated by: Krystal Mcgee CNM 08/16: O+,abs-, rpr;;nr, rub:NI, hbsag-, hiv-, gc/ct-, NIPT/neg, CF/SMA- Visit Date: 06/29/24 Last Updated by: Krystal Mcgee CNM 24 yo . LMP 04/04/24. EDC 01/08/25. Hyperemesis Office Procedures OBC Clinic LOC & Office Proc's Nursing/Assessment Patient Status: Established Patient OB Clinic Nursing Assessment: Medication Reconciliation, Update PMH in EMR and Vital Signs OB Clinic Coordination of Care: Complex Care and Chronic Disease 1-5, Consent,records obtained, informed consent, Education Simp Pt/Fam, Lab and Imaging orders, Results/Orders obtained and Staff clarify orders Special Needs: Heart tones Established Patient Charge Established Patient Point Assignment: 135 Established Patient Point Charge: EP Level 4 (120-155) Assessment & Plan Diagnosis / Problem List (1) Gestational [-induced] hypertension without significant proteinuria, third trimester: Status: Acute (2) Encounter for supervision of high risk in third trimester, antepartum: Status: Acute Plan GBS today. Continue biweekly NST BPP. Patient will go on Saturday. Discussed PIH signs symptoms and worsening signs symptoms. Discussed ER precautions with parameters. Kick count twice a day. Increase fluids. Continue labetalol 100 3 times daily and return in a week OB check Additional Plan Follow Up: 1 Week (obc)
== END 2024-12-11 10:09 | disposition home or self-care (01) ==
LOC: HODSOBC 08:27
PROVIDERS: Supervising Provider Advanced Practice Midwife; Visit Provider Advanced Practice Midwife
DX: O09.893 Supervision of other high risk pregnancies, third trimester (principal); O13.3 Gestational [pregnancy-induced] hypertension without significant proteinuria, third trimester; Z3A.35 35 weeks gestation of pregnancy; Z36.85 Encounter for antenatal screening for Streptococcus B
CPT/HCPCS: 99214; G0463

== ENCOUNTER 2024-12-12 16:41 | Outpatient (CLI) | payer MEDICAID, SELFPAY ==
[2024-12-12 16:49] VITALS: BP 124/79; PULSE 88; RESP 18; RESP 99; TEMP 36.7; BMI 35.2
[2024-12-12 17:15] VITALS: BP 138/96; PULSE 89
[2024-12-12 17:17] VITALS: BP 118/78; PULSE 88
[2024-12-12 18:44] LABS: Collection Type, Urine Clean Catch
[2024-12-12 18:47] LABS: Basophils # (Auto) 0.0 Thou/mm3 (0.0-0.2); Basophils % (Auto) 0 % (0-2.5); Eosinophils # (Auto) 0.1 Thou/mm3 (0.0-0.5); Eosinophils % (Auto) 1 % (0-10); Hematocrit 32.0 % (36.0-46.0); Hemoglobin 10.7 g/dL (12.0-16.0); Immature Granulocytes Auto 0.10 Thou/mm3 (0.00-0.00); Lymphocytes # (Auto) 2.4 Thou/mm3 (1.0-4.8); Lymphocytes % (Auto) 24 % (10-50); Mean Corpuscular HGB Conc 33.4 g/dl (31.0-37.0); Mean Corpuscular Hemoglobin 29.3 pg (25.0-35.0); Mean Corpuscular Volume 88 fL (80-100); Monocytes # (Auto) 0.9 Thou/mm3 (0.0-0.8); Monocytes % (Auto) 9 % (0-12); Neutrophils # (Auto) 6.6 Thou/mm3 (1.8-7.7); Neutrophils % (Auto) 66 % (37-80); Nucleated Red Blood Cell # 0.00 Thou/mm3 (0.00-0.00); Nucleated Red Blood Cell % 0 /100 WBC (0); Platelet Count 299 Thou/mm3 (140-440); RDW Standard Deviation 43.5 fL (36.4-46.3); Red Blood Count 3.65 Miln/mm3 (4.00-5.20); White Blood Count 10.1 Thou/mm3 (3.6-11.0)
[2024-12-12 18:50] LABS: Bilirubin,Urine Negative (Negative); Blood,Urine Negative (Negative); Clarity,Urine Clear (Clear/Hazy); Color,Urine Colorless (Lt Yel-Yel); Glucose, Urine Negative (Negative); Ketones,Urine Negative (Negative); Leukocyte Esterase,Urine Positive (Negative); Nitrite,Urine Negative (Negative); PH,Urine 7.0 (5.0-7.0); Protein,Urine Negative (Neg - Trace); RBC,Urine < 1 /hpf (0-3); Specific Gravity,Urine 1.002 (1.001-1.035); Squamous Epithelial Cell,Urine < 1 /hpf (0-5); Urobilinogen,Urine Negative mg/dL (0.0-1.0); WBC,Urine < 1 /hpf (0-5)
[2024-12-12 19:01] LABS: Creatinine,Random Urine < 13 mg/dL (30-125); Protein Total, Random Urine < 6 mg/dL (1-14)
[2024-12-12 19:20] LABS: Alanine Aminotransferase < 7 U/L (10-49); Albumin, Serum 3.8 gm/dL (3.5-5.0); Albumin/Globulin Ratio 1.8 (1.2-2.2); Alkaline Phosphatase 127 U/L (46-116); Anion Gap 10 (7-16); Aspartate Amino Transferase 10 U/L (0-34); BUN/Creatinine Ratio 11 Ratio (12-20); Bilirubin,Total 0.6 mg/dL (0.3-1.2); Blood Urea Nitrogen 8 mg/dL (9-23); Calcium 9.1 mg/dL (8.3-10.6); Calcium (Corrected) 9.3 mg/dL (8.5-10.1); Carbon Dioxide 23.4 mMol/L (20.0-31.0); Chloride 104 mMol/L (98-107); Creatinine (Component) 0.7 mg/dL (0.6-1.3); Estimated Creatinine Clearance 129.9 mL/min (>60); Globulin 2.1 gm/dL (2.3-3.5); Glucose 82 mg/dL (74-106); Osmolality,Calculated 271 (275-295); Potassium 4.2 mMol/L (3.4-5.1); Sodium 137 mMol/L (136-145); Total Protein 5.9 gm/dL (5.7-8.2); Uric Acid 5.6 mg/dL (3.1-7.8); eGFR > 60 See Note
[2024-12-12 19:46] LABS: Fibrinogen 518 mg/dL (175-375); INR 0.9 (0.9-1.3); Partial Thromboplastin Time 26.5 Seconds (22.0-36.0); Prothrombin Time 9.2 Seconds (9.0-12.2)
== END 2024-12-12 18:20 | disposition home or self-care (01) ==
LOC: CNST 16:44 → S4SX 16:45
PROVIDERS: Referring Provider Obstetrics & Gynecology; Visit Provider Obstetrics & Gynecology
DX: Z34.03 Encounter for supervision of normal first pregnancy, third trimester (principal); Z36.9 Encounter for antenatal screening, unspecified; Z3A.36 36 weeks gestation of pregnancy
CPT/HCPCS: 36415; 59025; 80053; 81001; 82570; 84156; 84550; 85025; 85384; 85610; 85730

== ENCOUNTER 2024-12-21 08:45 | Outpatient (AMB) | payer MEDICAID, SELFPAY ==
[2024-12-21 08:54] VITALS: BP 142/93; PULSE 107; RESP 18; TEMP 36.2; O2SAT 98; BMI 35.6
--- NOTE | 2024-12-21 08:54 | OBCLNT_ITS ---
Vital Signs 12/21/24 08:54 Height 1.6 m Height Method Stated Weight 91.399 kg Weight Measurement Method Standing Scale BMI 35.6 BP 142/93 H Blood Pressure Source Automatic Cuff Blood Pressure Location Left Upper Arm Position Sitting Respiration 18 Pulse 107 H Pulse Source Monitor Temp 97.2 F Temp Source Oral Pulse Oximetry (%) 98 Oxygen Delivery Method Room Air Allergies/Home Meds Allergies & Medications Allergies latex Allergy (Unknown, Verified 12/21/24 08:55) Medication Reconciliation labetalol 200 mg tablet 100 mg (1/2 x 200 mg) PO TID 30 days #45 tabs 12/09/24 [Rx Confirmed 12/21/24] Intake Visit Data Collection New Patient or Established: Established Patient (seen at [facility] within 3 years) Reason for Visit:: OBC Seen by Clinical Staff ONLY (RN/MA): No Registration Officer Required: No Do You Feel Safe at Home: Yes Authorities Contacted: N/A PCP or OBGYN visit in last 3 months: Yes Date of Last PCP or OBGYN visit: 12/12/24 Hx Now: Yes Are you currently on any form of Control: No Pain Present Currently: No Pain Scale Used: Rivas-Bojorquez/Numerical Pain scale:: 0 Smoking Status Smoking Status: Never smoker Immunizations Flu Vaccine in the Last 12 Months: No Flu Vaccine Exclusion Criteria: No Exclusion Criteria Questionnaires Covid-19 Vaccine Questionnaire Has patient been vacinated for Covid-19 Have you been vacinated for Covid-19: No PHQ-9 PHQ-2 Over the last 2 weeks, how often have you been bothered by any of the following problems? 1. Little interest or pleasure in doing things: not at all 2. Feeling down, depressed, or hopeless: not at all Total score: 0 PHQ-9 3. Trouble falling or staying asleep, or sleeping too much: Not at all 4. Feeling tired or having little energy: Not at all 5. Poor appetite or overeating: Not at all 6. Feeling bad about yourself - or that you are a failure or have let yourself or your family down: Not at all 7. Trouble concentrating on things, such as reading the newspaper or watching television: Not at all 8. Moving or speaking so slowly that other people could have noticed? - Or the opposite - being so fidgety or restless that you have been moving around a lot more than usual: not at all 9. Thoughts that you would be better off or of hurting yourself in some way: Not at all Total score: 0 If you checked off any problems, how difficult have these problems made it for you to do your work, take care of things at home, or get along with other people?: not difficult at all Source: Developed by Drs. Sebastián Gonzáles, Layla Arias, Oh Tomas and colleagues, with an educational sigifredo from [employer]. Depression screen completed yes Social History Living Situation History Marital Status: Single Lives With: Family Housing: House Tobacco History Smoking Status: Never smoker Second Hand Smoke Exposure: No Alcohol History Alcohol Intake: Never Domestic Abuse History Do You Feel Safe at Home: Yes Care OB Visit Log OB Flowsheet Initial Weight: Not Recorded Date -?-?-?-?-?-?-?-?-?-?-?-?- EGA Weight BP Alb Glu CTX Pres Fundal ht FHR Mov Dilation Station Effacement Hx Notes Visit Note 06/29/24 -?-?-?-?-?-?-?-?-?-?-?-?- 12w 2d 72.121 kg 135/91 absent unknown 13 156 absent 24-year-old 1 for OB appointment. Last period was April 04, 2024. And this gives due date January 08, 2025. Denies any SAB complaints thus far. Patient reports hyperemesis. She is nauseous all day and has been vomiting nonstop. Unable to eat even small amounts of food. Unable to drink liquids. She has been to the ER now 4 times. Reports that she was treated with an IV and then sent home not on any antiemetics. I spent time with patient today discussing comfort measures for hyperemesis. Such as dry diet. I recommended sea bands to the patient to try. Gave a prescription for Zofran 8 mg sublingual's I gave 30 of those with refills and then I also gave him Phenergan 12.5 suppositories that is every 6. If she is unable to tolerate the p.o. Zofran. Patient is states that she can tolerate gummy so she is taking those. OB panel with NIPT and carrier screens and drug screen today. Scheduled maternal- medicine sono for evaluation of anatomy. Early anatomy scan. Discussed SAB precautions and patient will return in 2 weeks for follow-up 07/13/24 -?-?-?-?-?-?-?-?-?-?-?-?- 14w 2d 75.466 kg 131/78 absent unknown 14 156 absent patient will get NIPT and ob panel today. reports nausea improving with zofran, MFM appointment pending. denies sab complaints, AFP NV advised to get labs. mfm appointment pending. continue zofran as needed for nausea, discuss dry diet. sab precaution, AFP NV 08/17/24 -?-?-?-?-?-?-?-?-?-?-?-?- 19w 2d 72.802 kg 115/79 absent unknown 19 154 absent light FM, no sab complaints. patient not sched for work x 3 week AFP, comfort measure for increased saliva. sab precaution. patient will call [facility] for sono. rtc 4 week 09/14/24 -?-?-?-?-?-?-?-?-?-?-?-?- 23w 2d 76.657 kg 115/75 absent unknown 23 145 absent Increased saliva. fetus active, denies leaking,bleeding or UC, nausea improved. anatomy scan pending 3rd ti labs toda y. f/u on MFM appointment, discuss ptl precaution,hydrTE. COMFORT MEASURE. rtc 4 week 10/19/24 -?-?-?-?-?-?-?-?-?-?-?-?- 28w 2d 75.523 kg 119/81 absent unknown 28 145 active Able to feel movement better now. Denies any signs symptoms of labor. Patient had an ultrasound at [facility] today. Continued itching and burning. And new swab results was positive for BV and positive for yeast ELECTRONICS SUPERVISOR Lotrimin 1% x 7 days ordered for patient. Flagyl 500 p.o. twice daily x 7 also ordered. Advised patient to get her third trimester labs. Discussed labor precautions. Increase fluids. And return in 3 weeks for OB check 11/09/24 -?-?-?-?-?-?-?-?-?-?-?-?- 31w 2d 79.379 kg 126/83 absent unknown 31 145 active Reports movement. Denies leaking or bleeding. Patient had questions about MFM referral. And she still has vaginitis complaints would like a refill on her Follow-up on maternal- medicine referral. Refill ELECTRONICS SUPERVISOR Lotrimin 1%. And give MetroGel twice daily for 7 days. Kick count twice weekly. Return in 2 weeks OB 12/04/24 -?-?-?-?-?-?-?-?-?-?-?-?- 34w 6d 87.6 kg 135/88 absent cephalic 33 145 active Denies PIH complaints. Reports good movement. Denies leaking or bleeding. Patient states she does have a little bit of a headache but she is not taking anything for it it goes away. No visual changes TD AP, discuss PIH s/s, labor precaution, ER precaution and parameters. [facility] bid, to [facility] for PIH eval. MFM 1 week 12/09/24 -?-?-?-?-?-?-?-?-?-?-?-?- 35w 4d 87.203 kg 134/92 occasional cephalic 35 145 active denies PIH complaints, ER visit 12/08, DC home. per md consult, Start labetolol 100 tid, NST R, no leaking or bleeding, fetus active Start labetalol 100 p.o. 3 times daily. Discussed PIH precautions. Urine was negative for nitrites today. I started biweekly NST BPP. Reviewed kick count twice a day. Patient will follow-up on Saturday for BP check and GBS. Start labetalol 100 p.o. 3 t imes daily. Discussed PIH precautions. Urine was negative for nitrites today. I started biweekly NST BPP. Reviewed kick count twice a day. Patient will follow-up on Saturday for BP check and GBS.IOL 12/27/24 12/11/24 -?-?-?-?-?-?-?-?-?-?-?-?- 35w 6d 87.997 kg 126/84 occasional cephalic 35 145 active Occasional headache. Because of her Tylenol. Denies blurred vision or epigastric pain. Reports good movement. Denies leaking, bleeding, contractions. GBS today. Discussed signs and symptoms preeclampsia and danger signs and symptoms. Discussed ER precautions. Continue biweekly NST BPP. Patient was started. Continue labetalol 100 p.o. 3 times daily. Increase fluids. Return in a week OB check. 12/21/24 -?-?-?-?-?-?-?-?-?-?-?-?- 37w 2d 91.399 kg 142/93 occasional cephalic 37 145 active No headache today. Patient denies epigastric pain. She did not take her labetalol today she was in a [place] and she thinks her blood pressure was elevated over that at home she gets usually like 02/28/1971 reports movement. Denies leaking or bleeding. Patient scheduled for induction December 27 Kick count reviewed with patient. Discussed PIH precautions and parameters. ER precautions reviewed. Scheduled for induction December 27. Patient will go home take her labetalol and then go to labor and delivery for PIH eval. Return in a week in case she does not get in on the JAMARCUS Calculator Estimated Delivery Date Method Current WG Current Estimate 01/09/25 LMP (Certain) 37w 2d Other Estimates 01/06/25 Ultrasound #1 37w 5d 01/20/25 Ultrasound #2 35w 5d 01/09/25 Manual 37w 2d final JAMARCUS: 12/13 11/05. EFW: 32.3% Notes Visit Date: 12/21/24 Last Updated by: Krystal Mcgee CNM 12/21: GBS-blood pressure delivery ordered earlier she is going to have to go to the hospital Visit Date: 11/09/24 Last Updated by: Krystal Mcgee CNM 3rd tri labs. wnl Visit Date: 09/14/24 Last Updated by: Krystal Mcgee CNM 24 yo . LMP 04/04/24. EDC 01/09/25 Visit Date: 08/17/24 Last Updated by: Krystal Mcgee CNM 08/16: O+,abs-, rpr;;nr, rub:NI, hbsag-, hiv-, gc/ct-, NIPT/neg, CF/SMA- Visit Date: 06/29/24 Last Updated by: Krystal Mcgee CNM 24 yo . LMP 04/04/24. EDC 01/08/25. Hyperemesis Office Procedures OBC Clinic LOC & Office Proc's Nursing/Assessment Patient Status: Established Patient OB Clinic Nursing Assessment: Medication Reconciliation, Update PMH in EMR and Vital Signs OB Clinic Coordination of Care: Consent,records obtained, informed consent, Education Simp Pt/Fam, Lab and Imaging orders, Results/Orders obtained and Staff clarify orders Special Needs: Heart tones Established Patient Charge Established Patient Point Assignment: 110 Established Patient Point Charge: EP Level 3 (80-115) Assessment & Plan Diagnosis / Problem List (1) Gestational [-induced] hypertension without significant proteinuria, third trimester: Status: Acute (2) Encounter for supervision of high risk in third trimester, antepartum: Status: Acute Plan Patient to labor and delivery for PIH eval. She will be given her 100 of labetalol that she missed and then we will check her blood pressures and labs. Discussed labor precautions and kick count. Scheduled for induction . Return in a week OB check if she does not get in for induction Additional Plan Follow Up: 1 Week (obc)
== END 2024-12-21 09:14 | disposition home or self-care (01) ==
LOC: HODSOBC 08:45
PROVIDERS: Supervising Provider Advanced Practice Midwife; Visit Provider Advanced Practice Midwife
DX: O09.893 Supervision of other high risk pregnancies, third trimester (principal); O13.3 Gestational [pregnancy-induced] hypertension without significant proteinuria, third trimester; Z3A.37 37 weeks gestation of pregnancy; T44.8X6A Underdosing of centrally-acting and adrenergic-neuron-blocking agents, initial encounter; Z91.138 Patient's unintentional underdosing of medication regimen for other reason; Z91.040 Latex allergy status
CPT/HCPCS: 81001; 99213; G0463

== ENCOUNTER 2024-12-21 15:30 | Inpatient (IN) | payer MEDICAID, SELFPAY ==
[2024-12-21] VITALS (93 sets, daily range): BP systolic 123–182; BP diastolic 67–106; PULSE 67–97; RESP 16–98; TEMP 36.2–36.8; O2SAT 89–100; BMI 36.0; BMI 36.1
[2024-12-21 12:17] LABS: Collection Type, Urine Clean Catch; RBC,Urine 0 /hpf (0-3)
[2024-12-21 12:23] LABS: Basophils # (Auto) 0.0 Thou/mm3 (0.0-0.2); Basophils % (Auto) 0 % (0-2.5); Eosinophils # (Auto) 0.0 Thou/mm3 (0.0-0.5); Eosinophils % (Auto) 0 % (0-10); Hematocrit 29.2 % (36.0-46.0); Hemoglobin 9.9 g/dL (12.0-16.0); Immature Granulocytes Auto 0.18 Thou/mm3 (0.00-0.00); Lymphocytes # (Auto) 2.0 Thou/mm3 (1.0-4.8); Lymphocytes % (Auto) 18 % (10-50); Mean Corpuscular HGB Conc 33.9 g/dl (31.0-37.0); Mean Corpuscular Hemoglobin 29.6 pg (25.0-35.0); Mean Corpuscular Volume 87 fL (80-100); Monocytes # (Auto) 1.1 Thou/mm3 (0.0-0.8); Monocytes % (Auto) 10 % (0-12); Neutrophils # (Auto) 7.8 Thou/mm3 (1.8-7.7); Neutrophils % (Auto) 70 % (37-80); Nucleated Red Blood Cell # 0.03 Thou/mm3 (0.00-0.00); Nucleated Red Blood Cell % 0 /100 WBC (0); Platelet Count 228 Thou/mm3 (140-440); RDW Standard Deviation 45.6 fL (36.4-46.3); Red Blood Count 3.35 Miln/mm3 (4.00-5.20); White Blood Count 11.2 Thou/mm3 (3.6-11.0)
[2024-12-21 12:45] LABS: Fibrinogen 532 mg/dL (175-375); INR 0.9 (0.9-1.3); Partial Thromboplastin Time 28.3 Seconds (22.0-36.0); Prothrombin Time 9.3 Seconds (9.0-12.2)
[2024-12-21 12:49] LABS: Alanine Aminotransferase 9 U/L (10-49); Albumin, Serum 3.4 gm/dL (3.5-5.0); Albumin/Globulin Ratio 1.8 (1.2-2.2); Alkaline Phosphatase 130 U/L (46-116); Anion Gap 8 (7-16); Aspartate Amino Transferase 13 U/L (0-34); BUN/Creatinine Ratio 18 Ratio (12-20); Bilirubin,Total 0.5 mg/dL (0.3-1.2); Blood Urea Nitrogen 11 mg/dL (9-23); Calcium 8.7 mg/dL (8.3-10.6); Calcium (Corrected) 9.2 mg/dL (8.5-10.1); Carbon Dioxide 23.9 mMol/L (20.0-31.0); Chloride 106 mMol/L (98-107); Creatinine (Component) 0.6 mg/dL (0.6-1.3); Estimated Creatinine Clearance 153.3 mL/min (>60); Globulin 1.9 gm/dL (2.3-3.5); Glucose 87 mg/dL (74-106); LDH (Lactate Dehydrogenase) 169 U/L (120-246); Osmolality,Calculated 274 (275-295); Potassium 4.4 mMol/L (3.4-5.1); Sodium 138 mMol/L (136-145); Total Protein 5.3 gm/dL (5.7-8.2); Uric Acid 7.3 mg/dL (3.1-7.8); eGFR > 60 See Note
[2024-12-21 13:02] LABS: Amorphous Crystals,Urine Present (Absent); Bacteria,Urine Rare; Bilirubin,Urine Negative (Negative); Blood,Urine Negative (Negative); Clarity,Urine Turbid (Clear/Hazy); Color,Urine Lt-Yellow (Lt Yel-Yel); Glucose, Urine Negative (Negative); Ketones,Urine Negative (Negative); Leukocyte Esterase,Urine Positive (Negative); Nitrite,Urine Negative (Negative); PH,Urine 6.5 (5.0-7.0); Protein,Urine 1+ (Neg - Trace); Specific Gravity,Urine 1.008 (1.001-1.035); Squamous Epithelial Cell,Urine 6 /hpf (0-5); Transitional Epi Cells,Urine < 1 /hpf (0-5); Urobilinogen,Urine Negative mg/dL (0.0-1.0); WBC,Urine 3 /hpf (0-5)
[2024-12-21 14:17] LABS: Creatinine,Random Urine 33 mg/dL (30-125); Protein Total, Random Urine 66 mg/dL (1-14)
--- NOTE | 2024-12-21 14:57 | XR_ITS ---
Examination: Complete OB ultrasound greater than 14 weeks Date and time of exam: December 21, 2024, 1554 hours INDICATIONS: Diagnosis -induced hypertension, labor evaluation today Findings: Viable intrauterine single fetus with single amniotic sac presentation cephalic spine maternal left Cardiac motion 145 bpm Placenta anterior grade 3 Umbilical cord insertion 3 vessel seen Amniotic fluid index 3.1 cm Cervix not visualized Ovaries obscured by bowel gas. Composite estimated gestational age based on BPD, head circumference, abdominal circumference, femur length is 35 weeks 1 day Estimated weight 2519 g. Survey of intracranial anatomy, spinal anatomy, abdominal anatomy, four-chamber heart performed with no abnormalities identified. Impression: Viable intrauterine gestation in cephalic presentation Amniotic fluid index 3.1 cm.
[2024-12-21 16:01] LABS: Basophils # (Auto) 0.0 Thou/mm3 (0.0-0.2); Basophils % (Auto) 0 % (0-2.5); Eosinophils # (Auto) 0.1 Thou/mm3 (0.0-0.5); Eosinophils % (Auto) 1 % (0-10); Hematocrit 30.9 % (36.0-46.0); Hemoglobin 10.2 g/dL (12.0-16.0); Immature Granulocytes Auto 0.14 Thou/mm3 (0.00-0.00); Lymphocytes # (Auto) 2.0 Thou/mm3 (1.0-4.8); Lymphocytes % (Auto) 20 % (10-50); Mean Corpuscular HGB Conc 33.0 g/dl (31.0-37.0); Mean Corpuscular Hemoglobin 29.1 pg (25.0-35.0); Mean Corpuscular Volume 88 fL (80-100); Monocytes # (Auto) 0.9 Thou/mm3 (0.0-0.8); Monocytes % (Auto) 9 % (0-12); Neutrophils # (Auto) 7.2 Thou/mm3 (1.8-7.7); Neutrophils % (Auto) 69 % (37-80); Nucleated Red Blood Cell # 0.03 Thou/mm3 (0.00-0.00); Nucleated Red Blood Cell % 0 /100 WBC (0); Platelet Count 255 Thou/mm3 (140-440); RDW Standard Deviation 45.7 fL (36.4-46.3); Red Blood Count 3.51 Miln/mm3 (4.00-5.20); White Blood Count 10.4 Thou/mm3 (3.6-11.0)
[2024-12-21] MEDS: LABETALOL 100 MG TABLET PO ×2 (16:25→21:39)
[2024-12-21 16:44] LABS: Syphilis Nonreactive (Nonreactive)
--- NOTE | 2024-12-21 17:09 | ESHP_ITS ---
Documentation for date of: 12/21/24 OB Labor/Induct. HPI History of Present Illness Chief complaint: induction of labor, pre eclampsia : 1 Para: 0 Term pregnancies: 0 pregnancies: 0 Living children: 0 History of Abortions: Spontaneous and Elective: 0 History of Vaginal deliveries: 0 History of sections: No History of : No Date of last menstrual period: 04/04/24 JAMARCUS: 01/09/25 Gestational Age (weeks): 37 Gestational Age (days): 2 Gestational age based on last menstrual period: 37 Indication for induction: medical complication (pre eclampsia) History of present illness: 24-year-old 1 para 0 admitted to labor and delivery for induction of labor. Patient was sent over to the unit today because of elevated blood pressure in the office. Patient currently takes labetalol 100 3 times daily for blood pressures and she has been monitoring her blood pressures at home and they have all been within normal range for her. Patient denies headache, epigastric pain, dizziness. No blurred vision. Reports movement. Denies leaking or contractions. History of positive THC. Denies alcohol or drug use. Patient denies any existence of chronic medical problems. And denies surgeries. Her has been complicated by hyperemesis. Ultrasound today showed an YUDELKA of 3.1. The baby was vertex. And EFW 2500 g. The creatinine ratio was 2. Patient is O+, antibody screen negative, rubella nonimmune, hepatitis B negative, hep C negative, HIV negative, GC and Chlamydia were negative. And RPR is nonreactive. GBS is negative. And patient had a normal 1 hour GTT History of Present Dating criteria: LMP confirmed by 1st trimester US Adequate Care: Yes Ultrasounds: normal 1st trimester US and normal mid trimester US Obstetrical complications: gestational hypertension Medical complications: none Labs Labs: Negative: RPR, Hepatitis B, Rubella Titre, HIV, Chlamydia and Gonorrhea and Unknown: Herpes Type 1, Herpes Type 2, Group Beta Strep and Covid- 19 Past Medical History Surgical History SURGICAL: Negative Section Meds Home Medications and Allergies Allergies Allergy/AdvReac Type Severity Reaction Status Date / Time latex Allergy Unknown Verified 12/21/24 15:16 OB Exam Physical Exam Vital signs: Temp Pulse Resp BP 98.2 F 68 16 164/98 H 12/21/24 11:39 12/21/24 17:07 12/21/24 11:39 12/21/24 17:07 Narrative: Alert and oriented. Normal heart rate and rhythm. Lungs clear no wheezes. Gravid abdomen. Gynecoid pelvis. Estimated weight 5 pounds 10 ounces. EFW on sono today was 2500 g. Baby was vertex. YUDELKA was 3.1. Creatinine ratio was 2. heart rate category 1 with accelerations and moderate variability and occasional contraction blood pressures are 130s by 80s Detailed Labor and Delivery Exam Dilation (cm): 2 Effacement (%): 40 Cervix position: mid station: -3 Consistency: medium Cervical ripeness score: 4 Membranes: intact Baseline heart rate: 145 monitor accelerations: 15x15 monitor decelerations: None intermediate variability: Moderate (11-25) Contraction frequency (min): occ Contraction duration (sec): mild Tachysystole: No Contraction intensity: Mild OB Results Labs 12/21/24 15:40 12/21/24 12:00 Labs: Short CBC 12/21/24 12/21/24 Range/Units 12:00 15:40 WBC 11.2 H 10.4 (3.6-11.0) Thou/mm3 Hgb 9.9 L 10.2 L (12.0-16.0) g/dL Hct 29.2 L 30.9 L (36.0-46.0) % Plt Count 228 D 255 (140-440) Thou/mm3 BMP 12/21/24 12:00 Sodium 138 Potassium 4.4 Chloride 106 Carbon Dioxide 23.9 BUN 11 Creatinine 0.6 Glucose 87 Calcium 8.7 Liver Function 12/21/24 Range/Units 12:00 Total Bilirubin 0.5 (0.3-1.2) mg/dL AST 13 (0-34) U/L ALT 9 L (10-49) U/L Alkaline Phosphatase 130 H (46-116) U/L Albumin 3.4 L (3.5-5.0) gm/dL Urine 12/21/24 Range/Units 11:35 Urine Color Lt-Yellow (Lt Yel-Yel) Urine Clarity Turbid A (Clear/Hazy) Urine pH 6.5 (5.0-7.0) Ur Specific [place] 1.008 (1.001-1.035) Urine Protein 1+ A (Neg - Trace) Urine Glucose (UA) Negative (Negative) OB Assessment & Plan Assessment and Plan (1) Gestational [-induced] hypertension without significant proteinuria, third trimester: Status: Acute (2) Normal labor and delivery: Status: Acute Additional Plan Induction method: per misoprostol protocol Plan: induction, anticipate NVD and consult MD gold
[2024-12-21] MEDS: RINGERS LACTATED 1000 ML 1,000 ML 100 ML IV (19:00)
[2024-12-21] MEDS: ACETAMINOPHEN 500 MG TABLET 1000 MG PO (20:07)
[2024-12-21 21:50] LABS: Amphetamine/Metham Scrn,Ur OB Negative (Negative); Benzoylecgonine Screen, Ur OB Negative (Negative); Opiate Screen,Urine OB Negative (Negative); THC Screen,Urine OB Negative (Negative)
[2024-12-21] MEDS: FAMOTIDINE 20 MG TABLET PO (22:54)
[2024-12-22] VITALS (254 sets, daily range): BP systolic 119–193; BP diastolic 65–130; PULSE 63–126; RESP 15–20; TEMP 36.7–36.9; O2SAT 73–100
[2024-12-22] MEDS: RINGERS LACTATED 1000 ML 1,000 ML 100 ML IV ×3 (00:26→11:10)
[2024-12-22] MEDS: LABETALOL 100 MG TABLET PO ×3 (06:05→22:33)
[2024-12-22] MEDS: LABETALOL INJ 5 MG/ML VIAL 20 ML 20 MG IVP (07:05)
[2024-12-22] MEDS: hydrALAZINE INJ 20 MG/ML VIAL 10 MG IVP (08:19)
[2024-12-22] MEDS: Magnesium Sulfate 4 GM Ivpb 4 GM/50 ML BAG IV (08:25)
[2024-12-22] MEDS: MAGNESIUM SULF 20 GM IVPB 20 GM/500 ML BAG IV ×2 (08:59→18:10)
--- NOTE | 2024-12-22 09:16 | PD.LDPN ---
Documentation for date of: 12/22/24 OB Labor Progress Note Pelvic Exam Dilation (cm): 10 Effacement (%): 100 station: -1 Contractions Monitor mode: External Contraction frequency: 1-5.5 Contraction intensity: Moderate Status status: Category ll Assessment and Plan Comments: ANGELICA Mcgee is managing Penny's labor, while I am managing her pre-eclampsia. I was called once last night for Cat II FHRT and I reviewed the strip, advising expectant management for a time. (Cervidil was removed for tachysystole and SCE was 3/80/-2.) FHRT resolved to Cat I. I was called again this morning for elevated bp's while patient was having a lot of pain. Epidural was re-bolused and severe range bp's continued to occur despite improvement in pain, so I advised Hydralazine 10mg IV x1 be given and IV MgSO4 4g/2g be initiated. Repeat PIH labs and routine Mg checks. Patient initially did not want further cervical exams because they were uncomfortable for her, I offered section and she declined. Eventually she allowed me to check her again (while ANGELICA Mcgee was in another delivery) and Penny is now C/C/0. Will begin pushing soon. Continue close eye to bp's. MgSO4 until 24hr PP. Nu Crowley MD
[2024-12-22] MEDS: MINERAL OIL 30 ML UDC TOP (09:34)
[2024-12-22 09:39] LABS: Basophils # (Auto) 0.0 Thou/mm3 (0.0-0.2); Basophils % (Auto) 0 % (0-2.5); Eosinophils # (Auto) 0.0 Thou/mm3 (0.0-0.5); Eosinophils % (Auto) 0 % (0-10); Hematocrit 32.5 % (36.0-46.0); Hemoglobin 10.8 g/dL (12.0-16.0); Immature Granulocytes Auto 0.15 Thou/mm3 (0.00-0.00); Lymphocytes # (Auto) 2.2 Thou/mm3 (1.0-4.8); Lymphocytes % (Auto) 14 % (10-50); Mean Corpuscular HGB Conc 33.2 g/dl (31.0-37.0); Mean Corpuscular Hemoglobin 28.7 pg (25.0-35.0); Mean Corpuscular Volume 86 fL (80-100); Monocytes # (Auto) 1.0 Thou/mm3 (0.0-0.8); Monocytes % (Auto) 6 % (0-12); Neutrophils # (Auto) 12.5 Thou/mm3 (1.8-7.7); Neutrophils % (Auto) 79 % (37-80); Nucleated Red Blood Cell # 0.00 Thou/mm3 (0.00-0.00); Nucleated Red Blood Cell % 0 /100 WBC (0); Platelet Count 273 Thou/mm3 (140-440); RDW Standard Deviation 45.3 fL (36.4-46.3); Red Blood Count 3.76 Miln/mm3 (4.00-5.20); White Blood Count 15.9 Thou/mm3 (3.6-11.0)
[2024-12-22] MEDS: OXYTOCIN in NS 20 units 20 UNIT/1,000 ML BAG 125 UNIT IV (09:44)
[2024-12-22] MEDS: OXYTOCIN INJ 10 UNIT/ML VIAL IM (09:44)
[2024-12-22] MEDS: TRANEXAMIC ACID 1,000 MG IVPB 1,000 MG/100 ML BAG 200 MG IV ×2 (09:47→10:44)
[2024-12-22] MEDS: BENZO/LANO/ALOE (Dermoplast) 60 GM CAN 1 SPRAY TOP (10:07)
[2024-12-22 10:08] LABS: Fibrinogen 600 mg/dL (175-375); INR 0.9 (0.9-1.3); Partial Thromboplastin Time 28.3 Seconds (22.0-36.0); Prothrombin Time 9.0 Seconds (9.0-12.2)
[2024-12-22] MEDS: IBUPROFEN TAB 400 MG TABLET 800 MG PO (10:09)
[2024-12-22 10:15] LABS: Alanine Aminotransferase 10 U/L (10-49); Albumin, Serum 3.6 gm/dL (3.5-5.0); Albumin/Globulin Ratio 1.7 (1.2-2.2); Alkaline Phosphatase 141 U/L (46-116); Anion Gap 11 (7-16); Aspartate Amino Transferase 18 U/L (0-34); BUN/Creatinine Ratio 15 Ratio (12-20); Bilirubin,Total 0.6 mg/dL (0.3-1.2); Blood Urea Nitrogen 9 mg/dL (9-23); Calcium 8.6 mg/dL (8.3-10.6); Calcium (Corrected) 8.9 mg/dL (8.5-10.1); Carbon Dioxide 21.3 mMol/L (20.0-31.0); Chloride 105 mMol/L (98-107); Creatinine (Component) 0.6 mg/dL (0.6-1.3); Estimated Creatinine Clearance 153.6 mL/min (>60); Globulin 2.1 gm/dL (2.3-3.5); Glucose 86 mg/dL (74-106); Magnesium 3.8 mg/dL (1.6-2.6); Osmolality,Calculated 271 (275-295); Potassium 4.1 mMol/L (3.4-5.1); Sodium 137 mMol/L (136-145); Total Protein 5.7 gm/dL (5.7-8.2); Uric Acid 7.0 mg/dL (3.1-7.8); eGFR > 60 See Note
[2024-12-22 10:30] LABS: Magnesium 3.9 mg/dL (1.6-2.6)
--- NOTE | 2024-12-22 10:35 | PD.LDDELS ---
Data (Huang) Data Hx Section: No : 1 Term: 0 : 0 Livin Abortions: Spontaneous & Theraputic: 0 Delivery Data (Huang) Labor Data Initiation of labor: Induction Induction/Augmentation Agent: Cervidil ROM date: 12/22/24 ROM time: 08:45 Amniotic membrane rupture type: Spontaneous Amniotic fluid description: Clear Delivery Data EDC: 01/09/25 EDC calculated by:: LMP/early US confirmation Date of arrival to unit: 12/21/24 Time of arrival to unit: 15:30 Onset of labor date: 12/22/24 Onset of labor time: 06:45 Complete dilation date: 12/22/24 Complete dilation time: 08:45 delivery date: 12/22/24 delivery time: 09:40 Gestational age (weeks): 37 Gestational age (days): 3 Placenta delivery date: 12/22/24 Placenta delivery time: 09:46 Stage 1 total time: Labor - Stage 1 Duration 2 hours and 0 minutes Delivered by: Chelly Delivery nurse: meg Head nurse: Casey Larios Statistical Secretary at delivery: No Support person(s) at delivery: FOB Delivery Method Delivery method: Normal Vaginal Delivery Presentation: Vertex position: OA Anesthesia Type Anesthesia Type: Epidural Delivery Room Medications Delivery room medications: Pitocin 10 u IM, Pitocin 20 u IV, Cytotec 800 [place] and other (txa x2) Placenta Placenta delivery description: Spontaneous (intact, complete) Cord blood sent to lab: Yes cord blood collection: Cord Blood Type Episiotomy Episiotomy description: None Lacerations #1: Vaginal: 1st degree (periurethral/no repair) Perineal repair Sutures used for repair: 3.0 Vicryl EBL Estimated blood loss (ml): 400 Umbilical Cord cord description: 3 Vessels and Loose (posterior arm) [place] Data (Huang) Data order: 1 's gender: Female Identification band number: [id number] weight (gms): 2210 g Weight (pounds): 4 lbs and 14.0 ozs 1 minute: 8 5 minutes: 9
[2024-12-22 14:19] LABS: Magnesium 4.7 mg/dL (1.6-2.6)
[2024-12-22 16:52] LABS: Magnesium 5.4 mg/dL (1.6-2.6)
[2024-12-22 20:53] LABS: Basophils # (Auto) 0.0 Thou/mm3 (0.0-0.2); Basophils % (Auto) 0 % (0-2.5); Eosinophils # (Auto) 0.0 Thou/mm3 (0.0-0.5); Eosinophils % (Auto) 0 % (0-10); Hematocrit 29.1 % (36.0-46.0); Hemoglobin 9.8 g/dL (12.0-16.0); Immature Granulocytes Auto 0.07 Thou/mm3 (0.00-0.00); Lymphocytes # (Auto) 2.0 Thou/mm3 (1.0-4.8); Lymphocytes % (Auto) 12 % (10-50); Mean Corpuscular HGB Conc 33.7 g/dl (31.0-37.0); Mean Corpuscular Hemoglobin 29.0 pg (25.0-35.0); Mean Corpuscular Volume 86 fL (80-100); Monocytes # (Auto) 1.1 Thou/mm3 (0.0-0.8); Monocytes % (Auto) 7 % (0-12); Neutrophils # (Auto) 13.2 Thou/mm3 (1.8-7.7); Neutrophils % (Auto) 80 % (37-80); Nucleated Red Blood Cell # 0.00 Thou/mm3 (0.00-0.00); Nucleated Red Blood Cell % 0 /100 WBC (0); Platelet Count 236 Thou/mm3 (140-440); RDW Standard Deviation 44.9 fL (36.4-46.3); Red Blood Count 3.38 Miln/mm3 (4.00-5.20); White Blood Count 16.5 Thou/mm3 (3.6-11.0)
[2024-12-22 21:26] LABS: Magnesium 5.6 mg/dL (1.6-2.6)
[2024-12-22] MEDS: DOCUSATE SOD 100 MG CAPSULE PO (22:34)
[2024-12-23] VITALS (15 sets, daily range): BP systolic 115–131; BP diastolic 75–88; PULSE 79–100; RESP 16–20; TEMP 36.4–37; O2SAT 95–98
[2024-12-23 03:08] LABS: Magnesium 6.4 mg/dL (1.6-2.6)
[2024-12-23] MEDS: MAGNESIUM SULF 20 GM IVPB 20 GM/500 ML BAG IV (05:24)
[2024-12-23] MEDS: LABETALOL 100 MG TABLET PO ×3 (06:25→21:46)
[2024-12-23] MEDS: DOCUSATE SOD 100 MG CAPSULE PO ×2 (08:54→21:46)
[2024-12-23 10:18] LABS: Magnesium 6.6 mg/dL (1.6-2.6)
--- NOTE | 2024-12-23 10:53 | PD.LDPPPRG ---
Subjective Subjective Interval history: Patient reports she feels great- was just sleepy while on the IV MgSO4 which was recently turned off at 24hr PP. Garcia was removed, hasn't yet voided. Minimal discomfort. She is ambulating no lightheadedness/dizziness. Tolerating regular diet without nausea/vomiting. Lochia tapering as expected. No fevers/chills, no CP/SOB. No RAGLAND/vision changes/RUQ pain. Exam Vital Signs Temp Pulse Resp BP Pulse Ox O2 Del Method 98.2 F 92 20 116/78 96 Room Air 12/23/24 08:30 12/23/24 08:30 12/23/24 08:30 12/23/24 08:30 12/23/24 08:30 12/23/24 08:30 Narrative Exam General: well developed, well nourished, no acute distress, conversant Cardiac: normal heart rate Lungs: breathing without distress Abdomen: soft, post-gravid, non-tender, no rebound or guarding, Fundus firm at u-3cm. Extremities: trace edema of BLE Objective Labs 12/22/24 20:23 12/22/24 08:52 Labs: Laboratory Results - last 24 hr 12/22/24 12/22/24 12/22/24 13:48 16:00 20:23 WBC 16.5 H RBC 3.38 L Hgb 9.8 L Hct 29.1 L MCV 86 MCH 29.0 MCHC 33.7 RDW Std Deviation 44.9 Plt Count 236 D Neut % (Auto) 80 Lymph % (Auto) 12 [place] % (Auto) 7 Eos % (Auto) 0 Baso % (Auto) 0 Neut # (Auto) 13.2 H Lymph # (Auto) 2.0 [place] # (Auto) 1.1 H Eos # (Auto) 0.0 Baso # (Auto) 0.0 Immature Gran # (Auto) 0.07 H Absolute Nucleated RBC 0.00 Immature Gran % 0 Nucleated RBC % 0 Magnesium 4.7 H 5.4 H* 5.6 H* 12/23/24 12/23/24 02:06 07:55 WBC RBC Hgb Hct MCV MCH MCHC RDW Std Deviation Plt Count Neut % (Auto) Lymph % (Auto) [place] % (Auto) Eos % (Auto) Baso % (Auto) Neut # (Auto) Lymph # (Auto) [place] # (Auto) Eos # (Auto) Baso # (Auto) Immature Gran # (Auto) Absolute Nucleated RBC Immature Gran % Nucleated RBC % Magnesium 6.4 H* 6.6 H* Assessment & Plan Problem List (1) Pre-eclampsia, severe, delivered: Status: Acute Assessment and plan: Penny is a 24yo [id number] s/p uncomplicated after undegoing IOL for GHTN with development of pre-eclampsia WITH severe features (severe range bp's) during labor, doing well on PPD 1. IV MgSO4 was recently stopped at 24hr PP. She has been continued on labetalol 100mg PO TID with normal bp's thus far. Vitals wnl, benign exam. Hemodynamically stable with no evidence of infection. Appropriate change in H/H from 10.8 to 9.8. Plan: -Continue routine care -Due to void within 6 hours -Continue labetalol 100mg PO TID -Regular diet -Encourage ambulation -Anticipate discharge home tomorrow if meeting all milestones (2) Vaginal delivery: Status: Acute Time Spent With Patient Time: Total time spent is greater than 50% in coordination of care (as documented) at patient's floor/unit and/or counseling patient:
--- NOTE | 2024-12-23 11:58 | PC.SS ---
FORESTRY CONTRACTOR conducted bedside contact with the patient to address nursing referral indicating patient possessed history of THC.? Toxicology report upon admission negative.? FORESTRY CONTRACTOR introduced self and role.? At bedside with patient was Sebastián PIÑA.? Patient gave permission for FOB to be present during discussion.? FORESTRY CONTRACTOR discussed basis of referral.? Patient confirmed recreational use of THC.? Patient stated ceasing use.? Patient states not planning to continue recreational use of THC.? 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 was delivered naturally.? Patient plans of combo feeding infant.? OB services provided by Krystal Mcgee.? Patient confirms consistency with OB appointments.? Patient is not aligned with SNAP, TANF and WIC. ?Patient denies history of alcohol/drug abuse.? Patient denies CWS intervention.? Patient denies episodes of domestic violence.? Patient denies possessing a history of mental health, reports no current possession of depression or anxiety.? Patient has access to appropriate supplies and equipment; to include a car seat.? FOB will provide transportation upon discharge.? Patient describes possessing support system consisting of FOB, mother and extended family.? FORESTRY CONTRACTOR provided the patient with community resources to include Parenting Network and Warm Line.? No further intervention required at this time, social sciences instructor will be available to address any further concerns.? FORESTRY CONTRACTOR updated bedside nurse.?
--- NOTE | 2024-12-23 13:35 | PC.NURSE ---
[address] Crowley to confirm dc of Mag at 24hrs after pt delivery. 0945 Mag discontinued, martinez cath removed, pt up to ambulate. Tolerated well.
[2024-12-23] MEDS: IBUPROFEN TAB 400 MG TABLET 800 MG PO (14:02)
[2024-12-24 04:02] VITALS: BP 121/76; PULSE 93; RESP 18; TEMP 36.7; O2SAT 97
[2024-12-24 06:16] VITALS: BP 129/76; PULSE 88
[2024-12-24] MEDS: LABETALOL 100 MG TABLET PO (06:16)
[2024-12-24 07:15] VITALS: BP 128/82; PULSE 88; RESP 18; TEMP 36.6; O2SAT 99
[2024-12-24] MEDS: IBUPROFEN TAB 400 MG TABLET 800 MG PO (08:49)
[2024-12-24] MEDS: DOCUSATE SOD 100 MG CAPSULE PO (08:49)
--- NOTE | 2024-12-24 11:02 | PD.LDDS ---
DS: Providers Provider Date of admission: 12/21/24 15:30 Primary care physician: Physician No Primary/Family Admitting Provider: Krystal Mcgee CNM Attending Provider on Admission: Krystal Mcgee CNM Consults: 12/22/24 11:59 Referral Routine Comment: Attending Provider on DC: Nu Crowley MD Discharging Provider: Nu Crowley MD DS: Diagnosis Problem List Completed Was Problem List Reviewed/Reconciled?: Yes Summary/Hosp Course Brief History: 24-year-old 1 para 0 admitted to labor and delivery for induction of labor. Patient was sent over to the unit today because of elevated blood pressure in the office. Patient currently takes labetalol 100 3 times daily for blood pressures and she has been monitoring her blood pressures at home and they have all been within normal range for her. Patient denies headache, epigastric pain, dizziness. No blurred vision. Reports movement. Denies leaking or contractions. History of positive THC. Denies alcohol or drug use. Patient denies any existence of chronic medical problems. And denies surgeries. Her has been complicated by hyperemesis. Ultrasound today showed an YUDELKA of 3.1. The baby was vertex. And EFW 2500 g. The creatinine ratio was 2. Patient is O+, antibody screen negative, rubella nonimmune, hepatitis B negative, hep C negative, HIV negative, GC and Chlamydia were negative. And RPR is nonreactive. GBS is negative. And patient had a normal 1 hour GTT. -- She is now s/p uncomplicated , doing well on PPD 2. She received diagnosis of severe pre-eclampsia in labor based on severe range bp's and IV MgSO4 was initiated and continued until 24hr . She has been normotensive since discontinuation of IV MgSO4 yesterday morning. She has had an otherwise uncomplicated course, meeting all milestones and feels ready for discharge home. She is ambulating without lightheadedness, tolerating regular diet no n/v, spontaneously voiding without issue. She has no chest pain or shortness of breath. No fevers or chills. No RAGLAND/vision changes/RUQ pain. Vitals normal, benign exam. Hemodynamically stable with no evidence of infection. PP Hgb 9.8 from 10.8. Will continue on labetalol 100mg PO TID and follow up with ANGELICA Mcgee for bp check in 1 week. Return precautions discussed at length. Peripartum Data Delivery Method: Normal Vaginal Delivery Episiotomy Description: None Status at Discharge Functional status at discharge: independent ambulation Overall status at discharge: patient is back to baseline Time Spent with Patient Time attestation: Total time spent providing and/or coordinating discharge services: Exam Vital Signs Temp Pulse Resp BP Pulse Ox O2 Del Method 98 F 88 18 128/82 99 Room Air 12/24/24 07:15 12/24/24 07:15 12/24/24 07:15 12/24/24 07:15 12/24/24 07:15 12/24/24 07:15 Narrative Exam General: well developed, well nourished, no acute distress, conversant Cardiac: normal heart rate Lungs: breathing without distress Abdomen: soft, post-gravid, non-tender, no rebound or guarding, Fundus firm at u-3cm. Extremities: no pain with palpation of calves, trace edema of BLE Discharge Plan Plan Patient Disposition: HOME (Self Care) Patient condition on transfer: Stable Prescriptions/Referrals Prescriptions/Med Rec: New docusate sodium 100 mg Capsule 100 mg PO BID 10 Days Qty: 20 0RF ibuprofen 800 mg tablet 800 mg PO Q8H PRN (Reason: See Comments) 10 Days Qty: 20 0RF Continued labetalol 200 mg tablet 100 mg PO TID 30 Days Qty: 45 4RF Referrals: Krystal Mcgee CNM [Certified Nurse Biological Sciences Professor, [employer]] No Primary/Family,Physician [Primary Care Provider] Patient/Caregiver Discharge Instructions Discharge Activity: activity as tolerated and other Other Discharge Activity Instructions:: vaginal rest and no heavy lifting more than 10 pounds for 6 weeks Other Discharge Diet Instructions: regular Education Materials: Kick Counts, Understanding Preeclampsia, Antepartum Discharge Print Language: Syriac Activity Restrictions/Additional Instructions: follow up with Krystal Mcgee in 1 week for blood pressure check, call clinic to schedule appointment Stand Alone Forms: Patient Portal Info Letter Discharge Order Discharge Orders: Discharge (Routine); Ordered 12/24/24 Ordered By: Nu Crowley Planned Discharge Date 12/24/24
== END 2024-12-24 14:10 | disposition home or self-care (01) | DRG 560 ==
LOC: S4S1 15:31 → S4SX 15:35 → S4NX 12-22 15:08 → S4SX 12-25 06:56
PROVIDERS: Obstetrics & Gynecology; Admitting Provider Advanced Practice Midwife; Referring Provider Advanced Practice Midwife; Visit Provider Advanced Practice Midwife
DX: O14.14 Severe pre-eclampsia complicating childbirth (principal); O70.0 First degree perineal laceration during delivery; Z37.0 Single live birth; Z3A.37 37 weeks gestation of pregnancy; Z23 Encounter for immunization; Z91.040 Latex allergy status
CPT/HCPCS: 36415; 59025; 59409; 76805; 80053; 80307; 81001; 82570; 83615; 83735; 84156; 84550; 85025; 85384; 85610; 85730; 86780; 86850; 86900; 86901; 90686; 90707; 94762; J0360; J2590; J2795; J3010; J3475; J3490; J7120; S0191; A9270; J1920; J9060

== ENCOUNTER 2025-01-26 10:05 | Outpatient (AMB) | payer MEDICAID, SELFPAY ==
[2025-01-26 10:32] VITALS: BP 117/72; PULSE 96; RESP 18; TEMP 36.2; O2SAT 98
--- NOTE | 2025-01-26 10:32 | AMB.OBPNC ---
Vital Signs 01/26/25 10:32 Weight 90.322 kg Weight Measurement Method Standing Scale BP 117/72 Blood Pressure Source Automatic Cuff Blood Pressure Location Left Upper Arm Position Sitting Respiration 18 Pulse 96 Pulse Source Monitor Temp 97.2 F Temp Source Oral Pulse Oximetry (%) 98 Oxygen Delivery Method Room Air Allergies/Home Meds Allergies & Medications Allergies latex Allergy (Unknown, Verified 01/26/25 10:33) Medication Reconciliation labetalol 200 mg tablet 100 mg (1/2 x 200 mg) PO TID 30 days #45 tabs 12/09/24 [Rx Confirmed 01/26/25] Immunizations Immunizations Flu Vaccine in the Last 12 Months: No Flu Vaccine Exclusion Criteria: No Exclusion Criteria Care OB Visit Log OB Flowsheet Initial Weight: Not Recorded Date <del>?</del> EGA Weight BP Alb Glu CTX Pres Fundal ht FHR Mov Dilation Station Effacement Hx Notes Visit Note 06/29/24 <del>?</del> 12w 2d 72.121 kg 135/91 absent unknown 13 156 absent 24-year-old 1 for OB appointment. Last period was April 04, 2024. And this gives due date January 08, 2025. Denies any SAB complaints thus far. Patient reports hyperemesis. She is nauseous all day and has been vomiting nonstop. Unable to eat even small amounts of food. Unable to drink liquids. She has been to the ER now 4 times. Reports that she was treated with an IV and then sent home not on any antiemetics. I spent time with patient today discussing comfort measures for hyperemesis. Such as dry diet. I recommended sea bands to the patient to try. Gave a prescription for Zofran 8 mg sublingual's I gave 30 of those with refills and then I also gave him Phenergan 12.5 suppositories that is every 6. If she is unable to tolerate the p.o. Zofran. Patient is states that she can tolerate gummy so she is taking those. OB panel with NIPT and carrier screens and drug screen today. Scheduled maternal- medicine sono for evaluation of anatomy. Early anatomy scan. Discussed SAB precautions and patient will return in 2 weeks for follow-up 07/13/24 <del>?</del> 14w 2d 75.466 kg 131/78 absent unknown 14 156 absent patient will get NIPT and ob panel today. reports nausea improving with zofran, MFM appointment pending. denies sab complaints, AFP NV advised to get labs. mfm appointment pending. continue zofran as needed for nausea, discuss dry diet. sab precaution, AFP NV 08/17/24 <del>?</del> 19w 2d 72.802 kg 115/79 absent unknown 19 154 absent light FM, no sab complaints. patient not sched for work x 3 week AFP, comfort measure for increased saliva. sab precaution. patient will call [facility] for sono. rtc 4 week 09/14/24 <del>?</del> 23w 2d 76.657 kg 115/75 absent unknown 23 145 absent Increased saliva. fetus active, denies leaking,bleeding or UC, nausea improved. anatomy scan pending 3rd ti labs today. f/u on MFM appointment, discuss ptl precaution,hydrTE. COMFORT MEASURE. rtc 4 week 10/19/24 <del>?</del> 28w 2d 75.523 kg 119/81 absent unknown 28 145 active Able to feel movement better now. Denies any signs symptoms of labor. Patient had an ultrasound at [facility] today. Continued itching and burning. And new swab results was positive for BV and positive for yeast SKIN CARE THERAPIST Lotrimin 1% x 7 days ordered for patient. Flagyl 500 p.o. twice daily x 7 also ordered. Advised patient to get her third trimester labs. Discussed labor precautions. Increase fluids. And return in 3 weeks for OB check 11/09/24 <del>?</del> 31w 2d 79.379 kg 126/83 absent unknown 31 145 active Reports movement. Denies leaking or bleeding. Patient had questions about MFM referral. And she still has vaginitis complaints would like a refill on her Follow-up on maternal- medicine referral. Refill SKIN CARE THERAPIST Lotrimin 1%. And give MetroGel twice daily for 7 days. Kick count twice weekly. Return in 2 weeks OB 12/04/24 <del>?</del> 34w 6d 87.6 kg 135/88 absent cephalic 33 145 active Denies PIH complaints. Reports good movement. Denies leaking or bleeding. Patient states she does have a little bit of a headache but she is not taking anything for it it goes away. No visual changes TDAP, discuss PIH s/s, labor precaution, ER precaution and parameters. [facility] bid, to [facility] for PIH eval. MFM 1 week 12/09/24 <del>?</del> 35w 4d 87.203 kg 134/92 occasional cephalic 35 145 active denies PIH complaints, ER visit 12/08, DC home. per md consult, Start labetolol 100 tid, NST R, no leaking or bleeding, fetus active Start labetalol 100 p.o. 3 times daily. Discussed PIH precautions. Urine was negative for nitrites today. I started biweekly NST BPP. Reviewed kick count twice a day. Patient will follow-up on Saturday for BP check and GBS. Start labetalol 100 p.o. 3 times daily. Discussed PIH precautions. Urine was negative for nitrites today. I started biweekly NST BPP. Reviewed kick count twice a day. Patient will follow-up on Saturday for BP check and GBS.IOL 12/27/24 12/11/24 <del>?</del> 35w 6d 87.997 kg 126/84 occasional cephalic 35 145 active Occasional headache. Because of her Tylenol. Denies blurred vision or epigastric pain. Reports good movement. Denies leaking, bleeding, contractions. GBS today. Discussed signs and symptoms preeclampsia and danger signs and symptoms. Discussed ER precautions. Continue biweekly NST BPP. Patient was started. Continue labetalol 100 p.o. 3 times daily. Increase fluids. Return in a week OB check. 12/21/24 <del>?</del> 37w 2d 91.399 kg 142/93 occasional cephalic 37 145 active No headache today. Patient denies epigastric pain. She did not take her labetalol today she was in a bowen and she thinks her blood pressure was elevated over that at home she gets usually like 02/28/1971 reports movement. Denies leaking or bleeding. Patient scheduled for induction December 27 Kick count reviewed with patient. Discussed PIH precautions and parameters. ER precautions reviewed. Scheduled for induction December 27. Patient will go home take her labetalol and then go to labor and delivery for PIH eval. Return in a week in case she does not get in on the 16 JAMARCUS Calculator Estimated Delivery Date Method Current WG Current Estimate 01/09/25 LMP (Certain) 42w 3d Other Estimates 01/06/25 Ultrasound #1 42w 6d 01/20/25 Ultrasound #2 40w 6d 01/09/25 Manual 42w 3d final JAMARCUS: 01/09/25. EFW: 32.3% Notes Visit Date: 12/21/24 Last Updated by: Krystal Mcgee CNM 12/21: GBS-blood pressure delivery ordered earlier she is going to have to go to the hospital Visit Date: 11/09/24 Last Updated by: Krystal Mcgee CNM 3rd tri labs. wnl Visit Date: 09/14/24 Last Updated by: Krystal Mcgee CNM 24 yo . LMP 04/04/24. EDC 01/09/25 Visit Date: 08/17/24 Last Updated by: Krystal Mcgee CNM 08/16: O+,abs-, rpr;;nr, rub:NI, hbsag-, hiv-, gc/ct-, NIPT/neg, CF/SMA- Visit Date: 06/29/24 Last Updated by: Krystal Mcgee CNM 24 yo . LMP 04/04/24. EDC 01/08/25. Hyperemesis
--- NOTE | 2025-01-26 10:34 | AMB.OBPP ---
Vital Signs 01/26/25 10:32 01/26/25 10:35 Weight 90.322 kg Weight Measurement Method Standing Scale BP 117/72 117/72 Blood Pressure Source Automatic Cuff Blood Pressure Location Left Upper Arm Position Sitting Respiration 18 18 Pulse 96 96 Pulse Source Monitor Temp 97.2 F 97.2 F Temp Source Oral Pulse Oximetry (%) 98 98 Oxygen Delivery Method Room Air Allergies/Home Meds Allergies & Medications Allergies latex Allergy (Unknown, Verified 01/26/25 10:34) Medication Reconciliation labetalol 200 mg tablet 100 mg (1/2 x 200 mg) PO TID 30 days #45 tabs 12/09/24 [Rx Confirmed 01/26/25] Intake Visit Data Collection New Patient or Established: Established Patient (seen at [facility] within 3 years) Reason for Visit:: //[facility] Seen by Clinical Staff ONLY (RN/MA): No Automatic Glove Turner And Former Required: No Do You Feel Safe at Home: Yes Authorities Contacted: N/A PCP or OBGYN visit in last 3 months: Yes Date of Last PCP or OBGYN visit: 12/24/24 Hx Now: No Are you currently on any form of Control: No Pain Present Currently: No Pain Scale Used: Rivas-Bojorquez/Numerical Pain scale:: 0 Smoking Status Smoking Status: Never smoker Immunizations Flu Vaccine in the Last 12 Months: No Flu Vaccine Exclusion Criteria: No Exclusion Criteria [employer]: Past Medical History Past Medical History: Yes Hx Neurological Disorders, Yes Hx Cardiac Disorders (GHTN), Yes Hx Hypertension, No Hx Cancer, Yes Hx Blood Disorders, Yes Hx Anemia, Yes Hx Gastrointestinal Disorders, No Hx Renal Disease, No Hx Diabetes Mellitus Type 1, No Hx Diabetes Mellitus Type 2 and No Psychiatric Problems Questionnaires Covid-19 Vaccine Questionnaire Has patient been vacinated for Covid-19 Have you been vacinated for Covid-19: No Social History Living Situation History Lives With: Family Housing: House Tobacco History Smoking Status: Never smoker Second Hand Smoke Exposure: No Alcohol History Alcohol Intake: Former Alcohol Intake Frequency: holidays/special occasions only Domestic Abuse History Do You Feel Safe at Home: Yes Care OB Visit Log OB Flowsheet Initial Weight: Not Recorded Date <del>?</del> EGA Weight BP Alb Glu CTX Pres Fundal ht FHR Mov Dilation Station Effacement Hx Notes Visit Note 06/29/24 <del>?</del> 12w 2d 72.121 kg 135/91 absent unknown 13 156 absent 24-year-old 1 for OB appointment. Last period was April 04, 2024. And this gives due date January 08, 2025. Denies any SAB complaints thus far. Patient reports hyperemesis. She is nauseous all day and has been vomiting nonstop. Unable to eat even small amounts of food. Unable to drink liquids. She has been to the ER now 4 times. Reports that she was treated with an IV and then sent home not on any antiemetics. I spent time with patient today discussing comfort measures for hyperemesis. Such as dry diet. I recommended sea bands to the patient to try. Gave a prescription for Zofran 8 mg sublingual's I gave 30 of those with refills and then I also gave him Phenergan 12.5 suppositories that is every 6. If she is unable to tolerate the p.o. Zofran. Patient is states that she can tolerate gummy so she is taking those. OB panel with NIPT and carrier screens and drug screen today. Scheduled maternal- medicine sono for evaluation of anatomy. Early anatomy scan. Discussed SAB precautions and patient will return in 2 weeks for follow-up 07/13/24 <del>?</del> 14w 2d 75.466 kg 131/78 absent unknown 14 156 absent patient will get NIPT and ob panel today. reports nausea improving with zofran, MFM appointment pending. denies sab complaints, AFP NV advised to get labs. mfm appointment pending. continue zofran as needed for nausea, discuss dry diet. sab precaution, AFP NV 08/17/24 <del>?</del> 19w 2d 72.802 kg 115/79 absent unknown 19 154 absent light FM, no sab complaints. patient not sched for work x 3 week AFP, comfort measure for increased saliva. sab precaution. patient will call [facility] for sono. rtc 4 week 09/14/24 <del>?</del> 23w 2d 76.657 kg 115/75 absent unknown 23 145 absent Increased saliva. fetus active, denies leaking,bleeding or UC, nausea improved. anatomy scan pending 3rd ti labs today. f/u on MFM appointment, discuss ptl precaution,hydrTE. COMFORT MEASURE. rtc 4 week 10/19/24 <del>?</del> 28w 2d 75.523 kg 119/81 absent unknown 28 145 active Able to feel movement better now. Denies any signs symptoms of labor. Patient had an ultrasound at [facility] today. Continued itching and burning. And new swab results was positive for BV and positive for yeast [employer] Lotrimin 1% x 7 days ordered for patient. Flagyl 500 p.o. twice daily x 7 also ordered. Advised patient to get her third trimester labs. Discussed labor precautions. Increase fluids. And return in 3 weeks for OB check 11/09/24 <del>?</del> 31w 2d 79.379 kg 126/83 absent unknown 31 145 active Reports movement. Denies leaking or bleeding. Patient had questions about MFM referral. And she still has vaginitis complaints would like a refill on her Follow-up on maternal- medicine referral. Refill [employer] Lotrimin 1%. And give MetroGel twice daily for 7 days. Kick count twice weekly. Return in 2 weeks OB 12/04/24 <del>?</del> 34w 6d 87.6 kg 135/88 absent cephalic 33 145 active Denies PIH complaints. Reports good movement. Denies leaking or bleeding. Patient states she does have a little bit of a headache but she is not taking anything for it it goes away. No visual changes TDAP, discuss PIH s/s, labor precaution, ER precaution and parameters. [facility] bid, to [facility] for PIH eval. MFM 1 week 12/09/24 <del>?</del> 35w 4d 87.203 kg 134/92 occasional cephalic 35 145 active denies PIH complaints, ER visit 12/08, DC home. per md consult, Start labetolol 100 tid, NST R, no leaking or bleeding, fetus active Start labetalol 100 p.o. 3 times daily. Discussed PIH precautions. Urine was negative for nitrites today. I started biweekly NST BPP. Reviewed kick count twice a day. Patient will follow-up on Saturday for BP check and GBS. Start labetalol 100 p.o. 3 times daily. Discussed PIH precautions. Urine was negative for nitrites today. I started biweekly NST BPP. Reviewed kick count twice a day. Patient will follow-up on Saturday for BP check and GBS.IOL 12/27/24 12/11/24 <del>?</del> 35w 6d 87.997 kg 126/84 occasional cephalic 35 145 active Occasional headache. Because of her Tylenol. Denies blurred vision or epigastric pain. Reports good movement. Denies leaking, bleeding, contractions. GBS today. Discussed signs and symptoms preeclampsia and danger signs and symptoms. Discussed ER precautions. Continue biweekly NST BPP. Patient was started. Continue labetalol 100 p.o. 3 times daily. Increase fluids. Return in a week OB check. 12/21/24 <del>?</del> 37w 2d 91.399 kg 142/93 occasional cephalic 37 145 active No headache today. Patient denies epigastric pain. She did not take her labetalol today she was in a bow[place] and she thinks her blood pressure was elevated over that at home she gets usually like 02/28/1971 reports movement. Denies leaking or bleeding. Patient scheduled for induction December 27 Kick count reviewed with patient. Discussed PIH precautions and parameters. ER precautions reviewed. Scheduled for induction December 27. Patient will go home take her labetalol and then go to labor and delivery for PIH eval. Return in a week in case she does not get in on the JAMARCUS Calculator Estimated Delivery Date Method Current WG Current Estimate 01/09/25 LMP (Certain) 42w 3d Other Estimates 01/06/25 Ultrasound #1 42w 6d 01/20/25 Ultrasound #2 40w 6d 01/09/25 Manual 42w 3d final JAMARCUS: 01/09/25. EFW: 32.3% Notes Visit Date: 12/21/24 Last Updated by: Krystal Godwin CNM 12/21: GBS-blood pressure delivery ordered earlier she is going to have to go to the hospital Visit Date: 11/09/24 Last Updated by: Krystal Godwin CNM 3rd tri labs. wnl Visit Date: 09/14/24 Last Updated by: Krystal Godwin CNM 24 yo . LMP 04/04/24. EDC 01/09/25 Visit Date: 08/17/24 Last Updated by: Krystal Godwin CNM 08/16: O+,abs-, rpr;;nr, rub:NI, hbsag-, hiv-, gc/ct-, NIPT/neg, CF/SMA- Visit Date: 06/29/24 Last Updated by: Krystal Godwin CNM 24 yo . LMP 04/04/24. EDC 01/08/25. Hyperemesis HPI Interval History: 24-year-old 1 para 1 for 5-week . Patient was induced at 37 weeks 2 days for elevated blood pressures. She has been taking labetalol 100 p.o. 3 times daily. Denies any existence of headache, blurred vision, epigastric pain. She is happy and reports that she is bonding well. Bottlefeeding. Good family support and father the baby is involved. She has no complaints or discomforts. Patient was a vaginal delivery December 22, 2024. With a small vaginal repair Was or delivery considered high risk: Yes Delivery type: vaginal Was labor induced: yes Gestational age at delivery (weeks): 37.2 Delivery date: 12/22/24 Delivering provider: lizett godwin Delivery complications: No Delivery complications comment: none Is patient sexually active: No Contraception planned: nexplanon Review of Systems Review of Systems ROS limited to current [employer] complaints: Yes Exam Narrative Physical exam: Normal heart rate and rhythm. Lungs clear no wheezes. Abdomen is soft nontender. Uterus well involuted. Perineum is intact no lacerations. No swelling. Small lochia. Negative Homans' sign. 2+ DTRs. No edema no swelling. Breasts are soft Office Procedures OBC Clinic LOC & Office Proc's Nursing/Assessment Patient Status: Established Patient OB Clinic Nursing Assessment: Medication Reconciliation, Update PMH in EMR and Vital Signs OB Clinic Coordination of Care: Education Complex Pt/Fam, Consent,records obtained, informed consent, Lab and Imaging orders, Results/Orders obtained and Staff clarify orders Established Patient Charge Established Patient Point Assignment: 85 Established Patient Point Charge: EP Level 3 (80-115) Assessment & Plan Diagnosis / Problem List (1) 6 weeks follow-up: Status: Acute Plan Continue labetalol 100 3 times daily. Reviewed PIH signs and symptoms and precautions. Okay to start walking for exercise. Continue multivitamins. Patient will schedule with her family practice provider to evaluate for chronic hypertension. We discussed control options. Patient elects to get the Mirena placed we reviewed Mirena side effects and effectiveness. No sex and return for insert Care Uterus involuted to: 3 below Perineal / incision healing noted: Yes Screened for depression: Yes Depression counseling provided: No Discussed family planning & contraception: Yes Contraception planned: nexplanon Counseling on safe resumption of sexual activity: Yes Counseling on gradual excercise: Yes Discussed and concerns (describe), provided support: No Referred to informatics specialist: No Counseled on good nutrition, hydration, and self care: Yes Reviewed vaccine status: No Chronic & current problems reconciled on problem list: Yes care discussed; questions answered: feeding Follow up: routine/prn Additional counseling & anticipatory guidance provided: No sex. Reviewed Nexplanon side effects and effectiveness. Discussed insertion procedure. Follow-up with family practice for elevated blood pressure. Continue labetalol 100 p.o. 3 times daily. Return for Nexplanon insertion
[2025-01-26 10:35] VITALS: BP 117/72; PULSE 96; RESP 18; TEMP 36.2; O2SAT 98
== END 2025-01-26 10:56 | disposition home or self-care (01) ==
LOC: HODSOBC 10:05
PROVIDERS: Supervising Provider Advanced Practice Midwife; Visit Provider Advanced Practice Midwife
DX: Z39.2 Encounter for routine postpartum follow-up (principal); O16.5 Unspecified maternal hypertension, complicating the puerperium; Z91.040 Latex allergy status; Z79.899 Other long term (current) drug therapy
CPT/HCPCS: 99213; G0463